=== PATIENT | male | born 1965 | race African-American/Black ===

== ENCOUNTER 2017-06-08 19:13 | Inpatient (IN) | payer MEDICARE, OTHER ==
[~2017-06-08] VITALS: Ht 167.6 cm; Wt 67.6 kg
[~2017-06-08 19:13] MED LIST: AMLO10TA4 PO; AMLO5TAB4 PO; ATOR40TA70 PO; CLOP75TA33 PO; HYDR25TA PO; INSULIN; METO25TA6 PO; SERT50TA PO; TAMS0.4C31 PO
[2017-06-08] MEDS ORDERED: AMLODIPINE 5MG TABLET PO ONE (20:00)
[2017-06-08] MEDS ORDERED: METOPROLOL TARTRATE 25MG TABLET PO ONE (20:00)
[2017-06-08] MEDS ORDERED: HYDROCHLOROTHIAZIDE 25MG TABLET PO ONE (20:00)
[2017-06-08] MEDS ORDERED: ENALAPRIL 2.5MG/2ML VIAL 2ML IV ONE (20:00)
[2017-06-08 20:26] LABS: EOSINOPHILS % 0.4 % (0.0-5.0); HEMATOCRIT. 42.1 % (42.0-52.0); HEMOGLOBIN. 13.5 g/dL (14.0-18.0); LYMPHOCYTES % 30.3 % (20.0-50.0); MEAN CORPUSCULAR HEMOGLOBIN 25.8 pg (28.0-32.0); MEAN CORPUSCULAR VOLUME 80.1 fL (80.0-94.0); MONOCYTES % 7.2 % (2.0-8.0); NEUTROPHILS % 61.1 % (40.0-76.0); PLATELET 218 x1000/uL (130-400); RED BLOOD CELL COUNT 5.25 mill/uL (4.7-6.1)
[2017-06-08 20:32] LABS: CHLORIDE 107 mEq/L (98-107)
[2017-06-08 20:34] LABS: INR 1.2; PARTIAL THROMBOPLASTIN TIME 27.8 sec (23.4-31.0); PROTHROMBIN TIME 12.4 sec (9.4-11.6)
[2017-06-08 20:41] LABS: CREATINE KINASE 71 IU/L (39-308)
[2017-06-08 20:44] LABS: CREATINE KINASE MB FRACTION 4.5 ng/mL (0.5-3.6)
[2017-06-08] MEDS ORDERED: FUROSEMIDE 40MG/4ML VIAL IVP ONE (21:00)
[2017-06-08] MEDS ORDERED: ASPIRIN 81MG TABLET PO ONE (21:15)
[2017-06-08 23:03] LABS: *AMPHETAMINES SCREEN URINE NEGATIVE (NEGATIVE); *BARBITURATES SCREEN URINE NEGATIVE (NEGATIVE); *BENZODIAZEPINES SCREEN URINE NEGATIVE (NEGATIVE); *COCAINE SCREEN URINE NEGATIVE (NEGATIVE); CANNABINOID URINE SCREEN NEGATIVE (NEGATIVE); OPIATES URINE SCREEN NEGATIVE (NEGATIVE); PHENCYCLIDINE URINE SCREEN NEGATIVE (NEGATIVE)
[2017-06-08 23:04] LABS: METHADONE URINE SCREEN NEGATIVE (NEGATIVE)
[2017-06-09] VITALS (11 sets, daily range): BP systolic 105–174; BP diastolic 73–121
[2017-06-09] MEDS ORDERED: HYDRALAZINE 20MG/ML VIAL IV PRN ×2 (02:45→14:30)
[2017-06-09] MEDS ORDERED: CLONIDINE 0.1MG TABLET PO PRN ×2 (02:45→14:30)
[2017-06-09 06:45] LABS: BASOPHILS % 1.4 % (0.0-2.0); EOSINOPHILS % 0.4 % (0.0-5.0); HEMATOCRIT. 43.1 % (42.0-52.0); HEMOGLOBIN. 13.9 g/dL (14.0-18.0); LYMPHOCYTES % 30.1 % (20.0-50.0); MEAN CORPUSCULAR HEMOGLOBIN 25.6 pg (28.0-32.0); MEAN CORPUSCULAR VOLUME 79.4 fL (80.0-94.0); MEAN PLATELET VOLUME 9.5 fl (7.4-10.4); MONOCYTES % 7.5 % (2.0-8.0); NEUTROPHILS % 60.6 % (40.0-76.0); PLATELET 206 x1000/uL (130-400); RED BLOOD CELL COUNT 5.42 mill/uL (4.7-6.1); RED CELL DISTRIBUTION WIDTH 14.7 % (11.6-14.6)
[2017-06-09] MEDS: METOPROLOL TARTRATE 25MG TABLET PO SCH ×2 (08:26→21:12)
[2017-06-09] MEDS: CLOPIDOGREL 75MG TABLET PO SCH (08:26)
[2017-06-09] MEDS: HYDROCHLOROTHIAZIDE 25MG TABLET PO SCH (08:27)
[2017-06-09] MEDS: TAMSULOSIN HCL 0.4MG SR CAPSULE PO SCH (08:27)
[2017-06-09] MEDS ORDERED: METOPROLOL TARTRATE 25MG TABLET PO SCH (09:00)
[2017-06-09] MEDS ORDERED: AMLODIPINE 10MG TABLET PO SCH (09:00)
[2017-06-09] MEDS ORDERED: CLOPIDOGREL 75MG TABLET PO SCH (09:00)
[2017-06-09] MEDS ORDERED: POTASSIUM CHLORIDE 20MEQ/PACKET PO NR (12:45)
[2017-06-09] MEDS ORDERED: REGADENOSON 0.4 MG/5 ML IV ONE (14:30)
[2017-06-09] MEDS ORDERED: AMLODIPINE 2.5MG TABLET PO SCH (14:45)
[2017-06-09] MEDS: ASPIRIN 81MG EC TABLET PO SCH (15:10)
[2017-06-09] MEDS: ENOXAPARIN 40MG/0.4ML SYR SUBCUT SCH (15:11)
[2017-06-09] MEDS: NITROGLYCERIN OINT 1GM/INCH UDPKT TD SCH ×2 (17:27→23:19)
[2017-06-09] MEDS: AMLODIPINE 10MG TABLET PO SCH (21:00)
[2017-06-09] MEDS: ATORVASTATIN CALCIUM 40MG TABLET PO SCH (21:11)
[2017-06-09] MEDS: HYDRALAZINE HCL 100MG TABLET PO SCH (23:18)
[2017-06-10] VITALS (12 sets, daily range): BP systolic 115–155; BP diastolic 72–111
[2017-06-10] MEDS: HYDRALAZINE HCL 100MG TABLET PO SCH ×3 (05:57→21:16)
[2017-06-10] MEDS: NITROGLYCERIN OINT 1GM/INCH UDPKT TD SCH ×4 (05:59→23:35)
[2017-06-10 06:47] LABS: BASOPHILS % 1.2 % (0.0-2.0); EOSINOPHILS % 2.1 % (0.0-5.0); HEMOGLOBIN. 13.8 g/dL (14.0-18.0); LYMPHOCYTES % 23.7 % (20.0-50.0); MEAN CORPUSCULAR HEMOGLOBIN 25.7 pg (28.0-32.0); MEAN PLATELET VOLUME 9.4 fl (7.4-10.4); MONOCYTES % 11.2 % (2.0-8.0); NEUTROPHILS % 61.8 % (40.0-76.0); PLATELET 219 x1000/uL (130-400); RED BLOOD CELL COUNT 5.37 mill/uL (4.7-6.1); RED CELL DISTRIBUTION WIDTH 14.9 % (11.6-14.6)
[2017-06-10 07:30] LABS: CHLORIDE 107 mEq/L (98-107)
[2017-06-10 07:39] LABS: LDL CHOLESTEROL 99 mg/dL (5-100)
[2017-06-10 07:40] LABS: CREATINE KINASE 44 IU/L (39-308); CREATINE KINASE MB FRACTION 2.5 ng/mL (0.5-3.6); HDL CHOLESTEROL 63 mg/dL (40-59)
[2017-06-10] MEDS ORDERED: REGADENOSON 0.4 MG/5 ML IV ONE (08:38)
[2017-06-10] MEDS: ASPIRIN 81MG EC TABLET PO SCH (10:09)
[2017-06-10] MEDS: CLOPIDOGREL 75MG TABLET PO SCH (10:10)
[2017-06-10] MEDS: AMLODIPINE 10MG TABLET PO SCH ×2 (10:10→21:16)
[2017-06-10] MEDS: HYDROCHLOROTHIAZIDE 25MG TABLET PO SCH (10:10)
[2017-06-10] MEDS: TAMSULOSIN HCL 0.4MG SR CAPSULE PO SCH (10:10)
[2017-06-10] MEDS: METOPROLOL TARTRATE 25MG TABLET PO SCH ×2 (10:11→21:16)
[2017-06-10] MEDS: ENOXAPARIN 40MG/0.4ML SYR SUBCUT SCH (14:19)
[2017-06-10] MEDS: ATORVASTATIN CALCIUM 40MG TABLET PO SCH (21:14)
[2017-06-11] VITALS (16 sets, daily range): BP systolic 102–197; BP diastolic 43–115
[2017-06-11] MEDS: HYDRALAZINE HCL 100MG TABLET PO SCH ×3 (05:41→21:53)
[2017-06-11] MEDS: NITROGLYCERIN OINT 1GM/INCH UDPKT TD SCH ×3 (05:41→23:18)
[2017-06-11] MEDS: ASPIRIN 81MG EC TABLET PO SCH (09:29)
[2017-06-11] MEDS: TAMSULOSIN HCL 0.4MG SR CAPSULE PO SCH (09:29)
[2017-06-11] MEDS: HYDROCHLOROTHIAZIDE 25MG TABLET PO SCH (09:30)
[2017-06-11] MEDS: METOPROLOL TARTRATE 25MG TABLET PO SCH (09:30)
[2017-06-11] MEDS: CLOPIDOGREL 75MG TABLET PO SCH (09:31)
[2017-06-11] MEDS: AMLODIPINE 10MG TABLET PO SCH ×2 (09:31→21:00)
[2017-06-11] MEDS: ENOXAPARIN 40MG/0.4ML SYR SUBCUT SCH (15:56)
[2017-06-11] MEDS: LOSARTAN POTASSIUM 25 MG TABLET PO SCH (17:09)
[2017-06-11] MEDS: CARVEDILOL 12.5MG TABLET PO SCH (17:12)
[2017-06-11] MEDS: ATORVASTATIN CALCIUM 40MG TABLET PO SCH ×2 (21:00→21:52)
[2017-06-12] VITALS (12 sets, daily range): BP systolic 101–130; BP diastolic 41–91
[2017-06-12] MEDS: HYDRALAZINE HCL 100MG TABLET PO SCH ×3 (05:18→21:49)
[2017-06-12] MEDS: NITROGLYCERIN OINT 1GM/INCH UDPKT TD SCH ×4 (05:18→23:08)
[2017-06-12] MEDS: ASPIRIN 81MG EC TABLET PO SCH (08:45)
[2017-06-12] MEDS: CLOPIDOGREL 75MG TABLET PO SCH (08:45)
[2017-06-12] MEDS: AMLODIPINE 10MG TABLET PO SCH ×2 (08:46→21:00)
[2017-06-12] MEDS: HYDROCHLOROTHIAZIDE 25MG TABLET PO SCH (08:47)
[2017-06-12] MEDS: CARVEDILOL 12.5MG TABLET PO SCH ×2 (08:47→17:31)
[2017-06-12] MEDS: LOSARTAN POTASSIUM 25 MG TABLET PO SCH (08:47)
[2017-06-12] MEDS: TAMSULOSIN HCL 0.4MG SR CAPSULE PO SCH (08:47)
[2017-06-12] MEDS: ENOXAPARIN 40MG/0.4ML SYR SUBCUT SCH (14:12)
[2017-06-12] MEDS: ATORVASTATIN CALCIUM 40MG TABLET PO SCH (21:57)
[2017-06-13] VITALS (12 sets, daily range): BP systolic 112–142; BP diastolic 69–96
[2017-06-13] MEDS: HYDRALAZINE HCL 100MG TABLET PO SCH (05:19)
[2017-06-13] MEDS: NITROGLYCERIN OINT 1GM/INCH UDPKT TD SCH ×3 (05:21→17:41)
[2017-06-13] MEDS: LOSARTAN POTASSIUM 25 MG TABLET PO SCH (08:07)
[2017-06-13] MEDS: CARVEDILOL 12.5MG TABLET PO SCH ×2 (08:07→17:44)
[2017-06-13] MEDS: ASPIRIN 81MG EC TABLET PO SCH (08:07)
[2017-06-13] MEDS: HYDROCHLOROTHIAZIDE 25MG TABLET PO SCH (08:07)
[2017-06-13] MEDS: AMLODIPINE 10MG TABLET PO SCH (08:08)
[2017-06-13] MEDS: CLOPIDOGREL 75MG TABLET PO SCH (08:08)
[2017-06-13] MEDS: TAMSULOSIN HCL 0.4MG SR CAPSULE PO SCH (08:08)
[2017-06-13] MEDS: ENOXAPARIN 40MG/0.4ML SYR SUBCUT SCH (14:04)
[2017-06-13] MEDS: HYDRALAZINE HCL 25MG TABLET PO SCH ×2 (14:10→21:24)
[2017-06-13 17:11] LABS: HEMATOCRIT. 42.3 % (42.0-52.0); HEMOGLOBIN. 13.7 g/dL (14.0-18.0); MEAN CORPUSCULAR HEMOGLOBIN 25.9 pg (28.0-32.0); MEAN PLATELET VOLUME 9.2 fl (7.4-10.4); PLATELET 214 x1000/uL (130-400); RED BLOOD CELL COUNT 5.28 mill/uL (4.7-6.1); RED CELL DISTRIBUTION WIDTH 15.4 % (11.6-14.6)
[2017-06-13] MEDS: ATORVASTATIN CALCIUM 40MG TABLET PO SCH (21:23)
[2017-06-13] MEDS: AMLODIPINE 5MG TABLET PO SCH (21:24)
[2017-06-13 22:17] LABS: PLATELET ESTIMATE NORMAL
[2017-06-14] VITALS: BP 125/80
[2017-06-14 04:00] VITALS: BP 127/84
[2017-06-14] MEDS: NITROGLYCERIN OINT 1GM/INCH UDPKT TD SCH ×4 (06:21→21:23)
[2017-06-14] MEDS: HYDRALAZINE HCL 25MG TABLET PO SCH ×3 (06:21→21:23)
[2017-06-14 07:07] LABS: HEMATOCRIT. 39.3 % (42.0-52.0); HEMOGLOBIN. 13.1 g/dL (14.0-18.0); MEAN CORPUSCULAR HEMOGLOBIN 26.5 pg (28.0-32.0); MEAN CORPUSCULAR VOLUME 79.7 fL (80.0-94.0); MEAN PLATELET VOLUME 9.2 fl (7.4-10.4); PLATELET 199 x1000/uL (130-400); RED BLOOD CELL COUNT 4.93 mill/uL (4.7-6.1); RED CELL DISTRIBUTION WIDTH 15.1 % (11.6-14.6)
[2017-06-14 08:00] VITALS: BP 122/80
[2017-06-14] MEDS ORDERED: CARVEDILOL 3.125 MG TABLET PO SCH (09:07)
[2017-06-14] MEDS: AMLODIPINE 5MG TABLET PO SCH (09:20)
[2017-06-14] MEDS: TAMSULOSIN HCL 0.4MG SR CAPSULE PO SCH (09:21)
[2017-06-14] MEDS: ASPIRIN 81MG EC TABLET PO SCH (09:21)
[2017-06-14] MEDS: HYDROCHLOROTHIAZIDE 25MG TABLET PO SCH (09:21)
[2017-06-14] MEDS: CLOPIDOGREL 75MG TABLET PO SCH (09:21)
[2017-06-14] MEDS: LOSARTAN POTASSIUM 25 MG TABLET PO SCH (09:21)
[2017-06-14 12:00] VITALS: BP 131/84
[2017-06-14] MEDS: ENOXAPARIN 40MG/0.4ML SYR SUBCUT SCH (14:45)
[2017-06-14 16:00] VITALS: BP 144/95
[2017-06-14 18:01] LABS: PLATELET ESTIMATE NORMAL
[2017-06-14 20:00] VITALS: BP 136/77
[2017-06-14] MEDS: ATORVASTATIN CALCIUM 40MG TABLET PO SCH (21:22)
[2017-06-14] MEDS: CARVEDILOL 6.25 MG TABLET PO SCH (21:23)
[2017-06-14] MEDS ORDERED: METF500T4 PO (23:43)
[2017-06-14] MEDS ORDERED: ASPI-1159 PO (23:49)
[2017-06-15] VITALS: BP 117/76
[2017-06-15] MEDS: HYDRALAZINE HCL 25MG TABLET PO SCH ×3 (06:31→21:37)
[2017-06-15] MEDS: NITROGLYCERIN OINT 1GM/INCH UDPKT TD SCH ×3 (06:32→21:36)
[2017-06-15 07:21] VITALS: BP 139/93
[2017-06-15] MEDS: ASPIRIN 81MG EC TABLET PO SCH (09:56)
[2017-06-15] MEDS: LOSARTAN POTASSIUM 25 MG TABLET PO SCH (09:56)
[2017-06-15] MEDS: FOLIC ACID 1MG TABLET PO SCH (09:56)
[2017-06-15] MEDS: TAMSULOSIN HCL 0.4MG SR CAPSULE PO SCH (09:56)
[2017-06-15] MEDS: HYDROCHLOROTHIAZIDE 25MG TABLET PO SCH (09:57)
[2017-06-15] MEDS: CARVEDILOL 6.25 MG TABLET PO SCH ×2 (09:57→20:53)
[2017-06-15] MEDS: AMLODIPINE 5MG TABLET PO SCH (09:58)
[2017-06-15] MEDS: CLOPIDOGREL 75MG TABLET PO SCH (09:58)
[2017-06-15 12:00] VITALS: BP 140/97
[2017-06-15] MEDS: ENOXAPARIN 40MG/0.4ML SYR SUBCUT SCH (14:20)
[2017-06-15 15:51] LABS: BASOPHILS % 0.7 % (0.0-2.0); EOSINOPHILS % 0.6 % (0.0-5.0); HEMATOCRIT. 42.8 % (42.0-52.0); HEMOGLOBIN. 13.6 g/dL (14.0-18.0); LYMPHOCYTES % 24.9 % (20.0-50.0); MEAN CORPUSCULAR HEMOGLOBIN 25.7 pg (28.0-32.0); MEAN CORPUSCULAR VOLUME 80.9 fL (80.0-94.0); MEAN PLATELET VOLUME 9.4 fl (7.4-10.4); NEUTROPHILS % 62.8 % (40.0-76.0); PLATELET 202 x1000/uL (130-400); RED BLOOD CELL COUNT 5.29 mill/uL (4.7-6.1); RED CELL DISTRIBUTION WIDTH 15.5 % (11.6-14.6)
[2017-06-15 16:00] VITALS: BP 145/98
[2017-06-15 20:36] VITALS: BP 132/91
[2017-06-15] MEDS: ATORVASTATIN CALCIUM 40MG TABLET PO SCH (20:53)
[2017-06-16 00:16] VITALS: BP 131/84
[2017-06-16 04:00] VITALS: BP 119/86
[2017-06-16] MEDS: HYDRALAZINE HCL 25MG TABLET PO SCH (05:35)
[2017-06-16] MEDS: NITROGLYCERIN OINT 1GM/INCH UDPKT TD SCH (05:35)
[2017-06-16 08:00] VITALS: BP 126/80
[2017-06-16] MEDS: CLOPIDOGREL 75MG TABLET PO SCH (08:25)
[2017-06-16] MEDS: AMLODIPINE 5MG TABLET PO SCH (08:25)
[2017-06-16] MEDS: FOLIC ACID 1MG TABLET PO SCH (08:25)
[2017-06-16] MEDS: TAMSULOSIN HCL 0.4MG SR CAPSULE PO SCH (08:25)
[2017-06-16] MEDS: ASPIRIN 81MG EC TABLET PO SCH (08:25)
[2017-06-16] MEDS: CARVEDILOL 6.25 MG TABLET PO SCH (08:26)
[2017-06-16] MEDS: LOSARTAN POTASSIUM 25 MG TABLET PO SCH (08:29)
[2017-06-16] MEDS: HYDROCHLOROTHIAZIDE 25MG TABLET PO SCH (08:33)
[2017-06-16 09:30] VITALS: BP 126/80
== END 2017-06-16 11:06 | DRG 64 ==
LOC: ER 19:47 → 5EST 20:56 → EDBEDREQTM 21:00 → EDBEDREQ 21:00 → EDBEDREQSVC 21:00 → ENRESERV 21:59 → 7WST 06-13 18:20
PROVIDERS: ADMIT Internal Medicine; ATTEND Internal Medicine
DX: I63.9 Cerebral infarction, unspecified (principal); I50.43 Acute on chronic combined systolic (congestive) and diastolic (congestive) heart failure; I95.9 Hypotension, unspecified; E11.22 Type 2 diabetes mellitus with diabetic chronic kidney disease; I42.9 Cardiomyopathy, unspecified; N17.9 Acute kidney failure, unspecified; E11.65 Type 2 diabetes mellitus with hyperglycemia; I13.0 Hypertensive heart and chronic kidney disease with heart failure and stage 1 through stage 4 chronic kidney disease, or unspecified chronic kidney disease; N18.4 Chronic kidney disease, stage 4 (severe); I69.359 Hemiplegia and hemiparesis following cerebral infarction affecting unspecified side; N18.9 Chronic kidney disease, unspecified; E87.6 Hypokalemia; E78.00 Pure hypercholesterolemia, unspecified; D72.819 Decreased white blood cell count, unspecified; R26.9 Unspecified abnormalities of gait and mobility; R47.1 Dysarthria and anarthria; E05.90 Thyrotoxicosis, unspecified without thyrotoxic crisis or storm; E78.5 Hyperlipidemia, unspecified; F32.9 Major depressive disorder, single episode, unspecified; F41.9 Anxiety disorder, unspecified; I16.0 Hypertensive urgency; N40.0 Benign prostatic hyperplasia without lower urinary tract symptoms; Z79.02 Long term (current) use of antithrombotics/antiplatelets; Z79.82 Long term (current) use of aspirin; Z79.84 Long term (current) use of oral hypoglycemic drugs; Z79.899 Other long term (current) drug therapy; Z91.14 Patient's other noncompliance with medication regimen
CPT/HCPCS: 36415; 70551; 71045; 78452; 78582; 80048; 80053; 80061; 80305; 82550; 82553; 83036; 83690; 83735; 83880; 84443; 84484; 85025; 85379; 85610; 85730; 92523; 92610; 93005; 93017; 93306; 93880; 96374; 96375; 97112; 97163; 97167; 97530; 99291; A9500; A9558; J0360; J1650; J1940; J2785; J3490; A4315

== ENCOUNTER 2017-11-11 11:13 | Inpatient (IN) | payer MEDICARE, OTHER ==
[~2017-11-11] VITALS: Ht 188 cm; Wt 67.2 kg
[~2017-11-11 11:13] MED LIST changes: -AMLO5TAB4 PO; +ASPI-1159 PO; -HYDR25TA PO; -INSULIN
[2017-11-11] MEDS ORDERED: SODIUM CHLORIDE 0.9% 1,000 ML IV ONE ×2 (11:54→13:30)
[2017-11-11] MEDS ORDERED: AMMONIA INHALATION 1EA INH ONE (13:30)
[2017-11-11 13:53] LABS: BG BASE EXCESS 0.9 mmol/L (-2.0-2.0); BG CARBOXYHEMOGLOBIN 0.4 % (0.5-1.5); BG DEOXYHEMOGLOBIN 3.9 % (0.0-5.0); BG HCO3 ACT 25.8 mmol/L (22.0-26.0); BG METHEMOGLOBIN 0.3 % (0.0-1.5); BG OXYGEN SATURATION 96.1 % (92.0-98.5); BG OXYHEMOGLOBIN 95.4 % (94.0-97.0); BG PCO2 42.6 mmHg (35.0-45.0); BG PO2 86.8 mmHg (75.0-100.0); BG SAMPLE SITE RIGHT RADIAL; BG TOTAL HEMOGLOBIN 9.5 g/dL (12.0-18.0); BG VENT MODE ROOM AIR
[2017-11-11 14:03] LABS: HEMATOCRIT. 27.9 % (42.0-52.0); HEMOGLOBIN. 9.1 g/dL (14.0-18.0); LYMPHOCYTES % 26.8 % (20.0-50.0); MEAN CORPUSCULAR HEMOGLOBIN 27.4 pg (28.0-32.0); MEAN CORPUSCULAR VOLUME 83.9 fL (80.0-94.0); MEAN PLATELET VOLUME 9.3 fl (7.4-10.4); MONOCYTES % 12.3 % (2.0-8.0); NEUTROPHILS % 58.9 % (40.0-76.0); PLATELET 177 x1000/uL (130-400); RED BLOOD CELL COUNT 3.33 mill/uL (4.7-6.1); RED CELL DISTRIBUTION WIDTH 14.5 % (11.6-14.6)
[2017-11-11 14:07] LABS: CHLORIDE 106 mEq/L (98-107)
[2017-11-11 14:09] LABS: PARTIAL THROMBOPLASTIN TIME 26.8 sec (23.4-31.0); PROTHROMBIN TIME 10.1 sec (9.1-11.1)
[2017-11-11 14:15] LABS: AMMONIA 41 uMol/L (<32)
[2017-11-11 14:16] LABS: CREATINE KINASE 80 IU/L (39-308)
[2017-11-11] MEDS ORDERED: LIDOCAINE HCL/PF 1% 2ML VIAL ONE (15:42)
[2017-11-11] MEDS ORDERED: LACTULOSE 20G/30ML UDC PO NR (17:00)
[2017-11-11] MEDS ORDERED: POTASSIUM CHLORIDE 20MEQ TABLET SR PO NR (17:00)
[2017-11-11 19:20] LABS: CLARITY URINE CLEAR (CLEAR); COLOR URINE YELLOW (YELLOW); KETONES URINE NEGATIVE (NEGATIVE); LEUKOCYTE ESTERASE URINE NEGATIVE (NEGATIVE); NITRITE URINE NEGATIVE (NEGATIVE); OCCULT BLOOD URINE NEGATIVE (NEGATIVE); PH URINE 7.5 (4.5-8.0); PROTEIN URINE TRACE (NEGATIVE); SPECIFIC GRAVITY URINE 1.008 (1.005-1.030)
[2017-11-11 19:49] LABS: *AMPHETAMINES SCREEN URINE NEGATIVE (NEGATIVE); *BARBITURATES SCREEN URINE NEGATIVE (NEGATIVE); *BENZODIAZEPINES SCREEN URINE NEGATIVE (NEGATIVE); *COCAINE SCREEN URINE NEGATIVE (NEGATIVE); CANNABINOID URINE SCREEN NEGATIVE (NEGATIVE); METHADONE URINE SCREEN NEGATIVE (NEGATIVE); OPIATES URINE SCREEN NEGATIVE (NEGATIVE); PHENCYCLIDINE URINE SCREEN NEGATIVE (NEGATIVE)
[2017-11-11] MEDS ORDERED: LABETALOL 5MG/ML SYR 20 MG/4 ML SYRINGE IV NR (20:56)
[2017-11-11] MEDS ORDERED: LORAZEPAM 2MG/ML CPJ IV NR (20:57)
[2017-11-11 22:08] VITALS: BP 205/101
[2017-11-11] MEDS ORDERED: DEXT 5%/0.9% NACL 1,000 ML IV SCH (23:00)
[2017-11-12] VITALS (8 sets, daily range): BP systolic 144–205; BP diastolic 88–118
[2017-11-12] MEDS: LABETALOL 5MG/ML SYR 20 MG/4 ML SYRINGE IV PRN (01:13)
[2017-11-12] MEDS: FAMOTIDINE 20MG/2ML VIAL IV SCH (09:37)
[2017-11-12] MEDS: ASPIRIN 81MG TABLET PO SCH (09:37)
[2017-11-12] MEDS ORDERED: MEDICATION NOT ON FORMULARY EA (Aspirin (Aspirin Low Dose) 1 TAB) PO SCH (11:15)
[2017-11-12] MEDS ORDERED: MEDICATION NOT ON FORMULARY EA (Clopidogrel Bisulfate (Clopidogrel) 1 TAB) PO SCH (11:15)
[2017-11-12] MEDS: CLOPIDOGREL 75MG TABLET PO SCH (12:11)
[2017-11-12] MEDS: AMLODIPINE 10MG TABLET PO SCH (12:11)
[2017-11-12] MEDS: TAMSULOSIN HCL 0.4MG SR CAPSULE PO SCH (12:12)
[2017-11-12] MEDS: METOPROLOL TARTRATE 25MG TABLET PO SCH ×2 (12:13→21:03)
[2017-11-12] MEDS: SERTRALINE HCL 50MG TABLET PO SCH (12:13)
[2017-11-12] MEDS: LORAZEPAM 2MG/ML CPJ IV PRN ×2 (12:26→21:58)
[2017-11-12 13:26] LABS: HEMATOCRIT 28.9 % (42.0-52.0); HEMOGLOBIN 9.3 g/dL (14.0-18.0); MEAN CORPUSCULAR HEMOGLOBIN 27.4 pg (28.0-32.0); MEAN CORPUSCULAR VOLUME 84.7 fL (80.0-94.0); PLATELET 184 x1000/uL (130-400); RED BLOOD CELL COUNT 3.41 mill/uL (4.7-6.1); RED CELL DISTRIBUTION WIDTH 14.6 % (11.6-14.6)
[2017-11-12] MEDS ORDERED: NITROGLYCERIN OINT 1GM/INCH UDPKT TD NR (15:48)
[2017-11-12] MEDS ORDERED: MEDICATION NOT ON FORMULARY EA (Metoprolol Tartrate 25 MG) PO SCH (17:00)
[2017-11-12] MEDS: ATORVASTATIN CALCIUM 40MG TABLET PO SCH (21:03)
[2017-11-13] VITALS (7 sets, daily range): BP systolic 123–176; BP diastolic 80–121
[2017-11-13 07:46] LABS: HEMATOCRIT 31.2 % (42.0-52.0); HEMOGLOBIN 10.1 g/dL (14.0-18.0); MEAN CORPUSCULAR HEMOGLOBIN 27.3 pg (28.0-32.0); MEAN CORPUSCULAR VOLUME 84.3 fL (80.0-94.0); PLATELET 206 x1000/uL (130-400); RED CELL DISTRIBUTION WIDTH 14.1 % (11.6-14.6)
[2017-11-13] MEDS: ASPIRIN 81MG TABLET PO SCH ×2 (09:00→18:01)
[2017-11-13] MEDS: CLOPIDOGREL 75MG TABLET PO SCH ×2 (09:00→18:01)
[2017-11-13] MEDS: METOPROLOL TARTRATE 25MG TABLET PO SCH (09:00)
[2017-11-13] MEDS: TAMSULOSIN HCL 0.4MG SR CAPSULE PO SCH ×2 (09:00→18:01)
[2017-11-13] MEDS: AMLODIPINE 10MG TABLET PO SCH ×2 (09:00→18:02)
[2017-11-13] MEDS: SERTRALINE HCL 50MG TABLET PO SCH ×2 (09:00→18:02)
[2017-11-13] MEDS: FAMOTIDINE 20MG/2ML VIAL IV SCH (09:20)
[2017-11-13] MEDS: LABETALOL 5MG/ML SYR 20 MG/4 ML SYRINGE IV PRN (10:35)
[2017-11-13] MEDS ORDERED: METOPROLOL TARTRATE 25MG TABLET PO NR (11:30)
[2017-11-13] MEDS ORDERED: HYDRALAZINE HCL 50MG TABLET PO SCH (14:00)
[2017-11-13] MEDS: ATORVASTATIN CALCIUM 40MG TABLET PO SCH (20:32)
[2017-11-13] MEDS: METOPROLOL TARTRATE 50MG TABLET PO SCH (20:32)
[2017-11-13] MEDS: HYDRALAZINE HCL 50MG TABLET PO SCH (22:05)
[2017-11-14] VITALS: BP 157/89
[2017-11-14 04:00] VITALS: BP 169/101
[2017-11-14] MEDS: HYDRALAZINE HCL 50MG TABLET PO SCH ×3 (06:02→23:35)
[2017-11-14 07:13] LABS: HEMATOCRIT 32.5 % (42.0-52.0); HEMOGLOBIN 10.6 g/dL (14.0-18.0); MEAN CORPUSCULAR HEMOGLOBIN 27.5 pg (28.0-32.0); MEAN CORPUSCULAR VOLUME 84.4 fL (80.0-94.0); PLATELET 218 x1000/uL (130-400); RED BLOOD CELL COUNT 3.85 mill/uL (4.7-6.1); RED CELL DISTRIBUTION WIDTH 14.1 % (11.6-14.6)
[2017-11-14 07:44] LABS: AMMONIA 28 uMol/L (<32)
[2017-11-14 08:00] VITALS: BP 165/101
[2017-11-14] MEDS: METOPROLOL TARTRATE 50MG TABLET PO SCH ×2 (08:20→21:41)
[2017-11-14] MEDS: CLOPIDOGREL 75MG TABLET PO SCH (08:20)
[2017-11-14] MEDS: FAMOTIDINE 20MG/2ML VIAL IV SCH (08:21)
[2017-11-14] MEDS: SERTRALINE HCL 50MG TABLET PO SCH (08:21)
[2017-11-14] MEDS: ASPIRIN 81MG TABLET PO SCH (08:21)
[2017-11-14] MEDS: AMLODIPINE 10MG TABLET PO SCH (08:21)
[2017-11-14] MEDS: TAMSULOSIN HCL 0.4MG SR CAPSULE PO SCH (08:21)
[2017-11-14 12:00] VITALS: BP 144/97
[2017-11-14 16:00] VITALS: BP 142/87
[2017-11-14 20:00] VITALS: BP 174/105
[2017-11-14] MEDS: ATORVASTATIN CALCIUM 40MG TABLET PO SCH (21:41)
[2017-11-15] VITALS: BP 169/103
[2017-11-15 04:00] VITALS: BP 172/98
[2017-11-15] MEDS: HYDRALAZINE HCL 50MG TABLET PO SCH ×3 (05:43→21:40)
[2017-11-15] MEDS: LORAZEPAM 2MG/ML CPJ IV PRN ×2 (05:43→13:32)
[2017-11-15] MEDS: FAMOTIDINE 20MG/2ML VIAL IV SCH (08:08)
[2017-11-15] MEDS: LABETALOL 5MG/ML SYR 20 MG/4 ML SYRINGE IV PRN (08:09)
[2017-11-15] MEDS: ASPIRIN 81MG TABLET PO SCH (08:39)
[2017-11-15] MEDS: CLOPIDOGREL 75MG TABLET PO SCH (08:39)
[2017-11-15] MEDS: METOPROLOL TARTRATE 50MG TABLET PO SCH ×2 (08:39→21:00)
[2017-11-15] MEDS: AMLODIPINE 10MG TABLET PO SCH (08:39)
[2017-11-15] MEDS: TAMSULOSIN HCL 0.4MG SR CAPSULE PO SCH (08:39)
[2017-11-15] MEDS: SERTRALINE HCL 50MG TABLET PO SCH (08:40)
[2017-11-15 08:46] VITALS: BP 189/105
[2017-11-15 12:46] VITALS: BP 153/109
[2017-11-15] MEDS: CLONIDINE 0.1MG TABLET PO SCH ×2 (14:00→21:41)
[2017-11-15 16:53] VITALS: BP 158/92
[2017-11-15 20:00] VITALS: BP 159/97
[2017-11-15] MEDS: ATORVASTATIN CALCIUM 40MG TABLET PO SCH (21:40)
[2017-11-16] VITALS: BP 174/97
[2017-11-16] MEDS: LORAZEPAM 2MG/ML CPJ IV PRN (00:08)
[2017-11-16 04:00] VITALS: BP 136/90
[2017-11-16] MEDS: HYDRALAZINE HCL 50MG TABLET PO SCH ×2 (05:58→14:45)
[2017-11-16] MEDS: CLONIDINE 0.1MG TABLET PO SCH ×2 (05:59→14:45)
[2017-11-16 08:00] VITALS: BP 141/86
[2017-11-16] MEDS: CLOPIDOGREL 75MG TABLET PO SCH (09:20)
[2017-11-16] MEDS: TAMSULOSIN HCL 0.4MG SR CAPSULE PO SCH (09:21)
[2017-11-16] MEDS: FAMOTIDINE 20MG/2ML VIAL IV SCH (09:22)
[2017-11-16] MEDS: ASPIRIN 81MG TABLET PO SCH (09:22)
[2017-11-16] MEDS: AMLODIPINE 10MG TABLET PO SCH (09:22)
[2017-11-16] MEDS: METOPROLOL TARTRATE 50MG TABLET PO SCH (09:22)
[2017-11-16] MEDS: SERTRALINE HCL 50MG TABLET PO SCH (09:22)
[2017-11-16 12:00] VITALS: BP 142/81
[2017-11-16 16:00] VITALS: BP 140/91
[2017-11-16 16:20] VITALS: BP 140/91
== END 2017-11-16 19:24 | DRG 291 ==
LOC: ER 11:35 → 6WST 13:34 → ENRESERV 19:54 → 6WST 11-13 03:45
PROVIDERS: ADMIT Internal Medicine; ATTEND Internal Medicine
DX: I13.0 Hypertensive heart and chronic kidney disease with heart failure and stage 1 through stage 4 chronic kidney disease, or unspecified chronic kidney disease (principal); G92 Toxic encephalopathy; I50.23 Acute on chronic systolic (congestive) heart failure; N17.9 Acute kidney failure, unspecified; E72.20 Disorder of urea cycle metabolism, unspecified; G40.909 Epilepsy, unspecified, not intractable, without status epilepticus; D64.9 Anemia, unspecified; N18.9 Chronic kidney disease, unspecified; E11.22 Type 2 diabetes mellitus with diabetic chronic kidney disease; E87.6 Hypokalemia; E78.00 Pure hypercholesterolemia, unspecified; N40.0 Benign prostatic hyperplasia without lower urinary tract symptoms; D72.819 Decreased white blood cell count, unspecified; W18.39XA Other fall on same level, initial encounter; Z86.73 Personal history of transient ischemic attack (TIA), and cerebral infarction without residual deficits; Z79.899 Other long term (current) drug therapy; Z79.82 Long term (current) use of aspirin; Z79.4 Long term (current) use of insulin; Y93.89 Activity, other specified; Y92.89 Other specified places as the place of occurrence of the external cause; Y99.8 Other external cause status
CPT/HCPCS: 36415; 36600; 70450; 71045; 80048; 80053; 80305; 80307; 80329; 81003; 82140; 82375; 82550; 82805; 83690; 83880; 84443; 84484; 85025; 85027; 85610; 85730; 93005; 96361; 96374; 96375; 97162; 99285; G0482; J2060; J3490; J7030; J7042

== ENCOUNTER 2018-02-02 12:37 | Emergency (ER) | payer MEDICARE, OTHER ==
[~2018-02-02] VITALS: Ht 177.8 cm; Wt 85.0 kg
[2018-02-02] MEDS ORDERED: SODIUM CHLORIDE 0.9% 1,000 ML IV ONE (13:23)
[2018-02-02 14:30] LABS: BASOPHILS % 0.9 % (0.0-2.0); EOSINOPHILS % 0.5 % (0.0-5.0); HEMATOCRIT. 35.8 % (42.0-52.0); HEMOGLOBIN. 11.6 g/dL (14.0-18.0); LYMPHOCYTES % 17.9 % (20.0-50.0); MEAN CORPUSCULAR HEMOGLOBIN 26.7 pg (28.0-32.0); MEAN CORPUSCULAR VOLUME 82.4 fL (80.0-94.0); MEAN PLATELET VOLUME 8.7 fl (7.4-10.4); MONOCYTES % 6.3 % (2.0-8.0); NEUTROPHILS % 74.4 % (40.0-76.0); PLATELET 183 x1000/uL (130-400); RED BLOOD CELL COUNT 4.34 mill/uL (4.7-6.1); RED CELL DISTRIBUTION WIDTH 14.4 % (11.6-14.6)
[2018-02-02 14:34] LABS: CHLORIDE 106 mEq/L (98-107); PROTHROMBIN TIME 10.3 sec (9.1-11.1)
[2018-02-02 14:39] LABS: ETHANOL BLOOD < 10 mg/dL
[2018-02-02] MEDS ORDERED: CLONIDINE 0.1MG TABLET PO ONE (16:15)
[2018-02-02 17:02] VITALS: BP 184/114
== END 2018-02-02 17:03 | disposition home or self-care (01) ==
LOC: ER 12:37
DX: R53.1 Weakness (principal); Z91.14 Patient's other noncompliance with medication regimen; I10 Essential (primary) hypertension; D64.9 Anemia, unspecified; N28.9 Disorder of kidney and ureter, unspecified; F10.10 Alcohol abuse, uncomplicated; Y90.0 Blood alcohol level of less than 20 mg/100 ml
CPT/HCPCS: 36415; 70450; 80053; 84484; 85025; 85610; 93005; 99284; G0482; J7030

== ENCOUNTER 2018-05-01 13:37 | Emergency (ER) | payer MEDICARE, OTHER ==
[~2018-05-01] VITALS: Ht 167.6 cm; Wt 66.0 kg
[2018-05-01 14:40] VITALS: BP 167/105
== END 2018-05-01 19:24 | disposition left against medical advice (07) ==
LOC: ER 17:05
DX: R10.9 Unspecified abdominal pain (principal); Z53.21 Procedure and treatment not carried out due to patient leaving prior to being seen by health care provider

== ENCOUNTER 2018-05-02 12:00 | Inpatient (IN) | payer MEDICARE, OTHER ==
[~2018-05-02] VITALS: Ht 167.6 cm; Wt 67.6 kg
[2018-05-02] MEDS ORDERED: SODIUM CHLORIDE 0.9% 1,000 ML IV ONE (15:49)
[2018-05-02] MEDS ORDERED: LORAZEPAM 2MG/ML CPJ IV ONE (16:00)
[2018-05-02 16:21] LABS: BASOPHILS % 0.7 % (0.0-2.0); EOSINOPHILS % 0.1 % (0.0-5.0); HEMATOCRIT. 42.2 % (42.0-52.0); HEMOGLOBIN. 12.3 g/dL (14.0-18.0); LYMPHOCYTES % 17.2 % (20.0-50.0); MEAN CORPUSCULAR HEMOGLOBIN 25.5 pg (28.0-32.0); MEAN CORPUSCULAR VOLUME 87.7 fL (80.0-94.0); MEAN PLATELET VOLUME 10.6 fl (7.4-10.4); MONOCYTES % 4.2 % (2.0-8.0); NEUTROPHILS % 77.8 % (40.0-76.0); PLATELET 209 x1000/uL (130-400); RED BLOOD CELL COUNT 4.81 mill/uL (4.7-6.1); RED CELL DISTRIBUTION WIDTH 14.3 % (11.6-14.6)
[2018-05-02 16:24] LABS: CHLORIDE 87 mEq/L (98-107)
[2018-05-02 16:30] LABS: ETHANOL BLOOD < 10 mg/dL
[2018-05-02] MEDS ORDERED: INSULIN REGULAR (DRIP) 100 UNITS in SODIUM CHLORIDE 0.9% 100 ML IV ONE (16:38)
[2018-05-02] MEDS ORDERED: SODIUM CHLORIDE 0.9% 1,000 ML IV NR (16:45)
[2018-05-02 17:07] LABS: BETA HYDROXYBUTYRATE 0.1 mMol/L (0.0-0.3); PHOSPHORUS 3.2 mg/dL (2.5-4.9)
[2018-05-02] MEDS ORDERED: LEVETIRACETAM 500MG PREMIX 100 ML IV ONE (17:15)
[2018-05-02 17:43] LABS: BG BASE EXCESS -1.2 mmol/L (-2.0-2.0); BG CARBOXYHEMOGLOBIN 0.1 % (0.5-1.5); BG DEOXYHEMOGLOBIN 2.6 % (0.0-5.0); BG FRACTION INSPIRED OXYGEN 21; BG HCO3 ACT 23.5 mmol/L (22.0-26.0); BG METHEMOGLOBIN 0.3 % (0.0-1.5); BG OXYGEN SATURATION 97.4 % (92.0-98.5); BG PCO2 39.2 mmHg (35.0-45.0); BG PH 7.395 (7.350-7.450); BG PO2 92.5 mmHg (75.0-100.0); BG SAMPLE SITE RIGHT BRACHIAL; BG TOTAL HEMOGLOBIN 13.1 g/dL (12.0-18.0); BG VENT MODE ROOM AIR
[2018-05-02] MEDS ORDERED: DEXTROSE 50% WATER 50ML SYRINGE IV PRN (21:45)
[2018-05-02] MEDS: BLOOD SUGAR DIAGNOSTIC STRIP TEST SCH (23:40)
[2018-05-02] MEDS: INSULIN LISPRO (MEDIUM DOSE) 100 UNITS/ML SUBCUT SCH (23:40)
[2018-05-03] VITALS (16 sets, daily range): BP systolic 113–186; BP diastolic 57–107
[2018-05-03] MEDS: CLONIDINE 0.1MG TABLET PO PRN (01:56)
[2018-05-03] MEDS: BLOOD SUGAR DIAGNOSTIC STRIP TEST SCH ×6 (02:20→22:14)
[2018-05-03] MEDS: INSULIN LISPRO (MEDIUM DOSE) 100 UNITS/ML SUBCUT SCH ×6 (02:32→22:22)
[2018-05-03] MEDS ORDERED: POTASSIUM CHLORIDE 20MEQ TABLET SR PO NR (20:00)
[2018-05-03] MEDS ORDERED: LEVETIRACETAM 500 MG in SODIUM CHLORIDE 0.9% 100 ML IV SCH (21:30)
[2018-05-04] VITALS (13 sets, daily range): BP systolic 131–184; BP diastolic 57–117
[2018-05-04] MEDS: ENOXAPARIN 40MG/0.4ML SYR SUBCUT SCH ×2 (00:12→21:27)
[2018-05-04] MEDS: CLONIDINE 0.1MG TABLET PO PRN (00:13)
[2018-05-04 01:04] LABS: BASOPHILS % 0.6 % (0.0-2.0); EOSINOPHILS % 0.8 % (0.0-5.0); HEMATOCRIT. 40.2 % (42.0-52.0); HEMOGLOBIN. 12.7 g/dL (14.0-18.0); LYMPHOCYTES % 20.6 % (20.0-50.0); MEAN CORPUSCULAR HEMOGLOBIN 25.5 pg (28.0-32.0); MEAN CORPUSCULAR VOLUME 80.5 fL (80.0-94.0); MEAN PLATELET VOLUME 10.2 fl (7.4-10.4); MONOCYTES % 6.5 % (2.0-8.0); NEUTROPHILS % 71.5 % (40.0-76.0); PLATELET 204 x1000/uL (130-400); RED CELL DISTRIBUTION WIDTH 13.9 % (11.6-14.6)
[2018-05-04 01:18] LABS: CHLORIDE 101 mEq/L (98-107)
[2018-05-04] MEDS: BLOOD SUGAR DIAGNOSTIC STRIP TEST SCH ×5 (02:30→21:00)
[2018-05-04] MEDS: INSULIN LISPRO (MEDIUM DOSE) 100 UNITS/ML SUBCUT SCH ×2 (02:31→06:27)
[2018-05-04 06:54] LABS: HEMATOCRIT. 37.3 % (42.0-52.0); HEMOGLOBIN. 11.8 g/dL (14.0-18.0); MEAN CORPUSCULAR HEMOGLOBIN 25.4 pg (28.0-32.0); MEAN CORPUSCULAR VOLUME 80.1 fL (80.0-94.0); MEAN PLATELET VOLUME 9.9 fl (7.4-10.4); PLATELET 206 x1000/uL (130-400); RED BLOOD CELL COUNT 4.66 mill/uL (4.7-6.1); RED CELL DISTRIBUTION WIDTH 13.9 % (11.6-14.6)
[2018-05-04] MEDS ORDERED: DEXTROSE 50% WATER 50ML SYRINGE IV PRN (08:15)
[2018-05-04] MEDS: LEVETIRACETAM 500 MG in SODIUM CHLORIDE 0.9% 100 ML IV SCH ×2 (09:14→21:28)
[2018-05-04] MEDS: INSULIN LISPRO 100 UNITS/ML SUBCUT SCH ×3 (13:01→21:29)
[2018-05-04 13:13] LABS: PLATELET ESTIMATE NORMAL
[2018-05-04] MEDS: ASPIRIN 81MG TABLET PO SCH (17:42)
[2018-05-04] MEDS: CLOPIDOGREL 75MG TABLET PO SCH (17:42)
[2018-05-04] MEDS ORDERED: INSULIN GLARGINE UD 100 UNITS/ML SYR SUBCUT NR (18:00)
[2018-05-04] MEDS: METOPROLOL TARTRATE 25MG TABLET PO SCH (21:27)
[2018-05-05] VITALS: BP 155/82
[2018-05-05 01:33] VITALS: BP 168/73
[2018-05-05 02:00] VITALS: BP 175/89
[2018-05-05 04:00] VITALS: BP 196/115
[2018-05-05] MEDS: CLONIDINE 0.1MG TABLET PO PRN ×2 (04:15→10:09)
[2018-05-05 06:00] VITALS: BP 172/92
[2018-05-05] MEDS: BLOOD SUGAR DIAGNOSTIC STRIP TEST SCH ×3 (07:02→17:21)
[2018-05-05 07:36] LABS: HEMATOCRIT 35.6 % (42.0-52.0); HEMOGLOBIN 11.3 g/dL (14.0-18.0); MEAN CORPUSCULAR HEMOGLOBIN 25.4 pg (28.0-32.0); MEAN CORPUSCULAR VOLUME 79.8 fL (80.0-94.0); PLATELET 183 x1000/uL (130-400); RED BLOOD CELL COUNT 4.47 mill/uL (4.7-6.1); RED CELL DISTRIBUTION WIDTH 13.6 % (11.6-14.6)
[2018-05-05] MEDS: INSULIN LISPRO 100 UNITS/ML SUBCUT SCH ×3 (08:15→17:42)
[2018-05-05] MEDS ORDERED: ATORVASTATIN CALCIUM 40MG TABLET PO SCH (09:00)
[2018-05-05] MEDS ORDERED: AMLODIPINE 10MG TABLET PO SCH (09:00)
[2018-05-05] MEDS ORDERED: TAMSULOSIN HCL 0.4MG SR CAPSULE PO SCH (09:00)
[2018-05-05] MEDS ORDERED: SERTRALINE HCL 50MG TABLET PO SCH (09:00)
[2018-05-05] MEDS ORDERED: INSULIN GLARGINE UD 100 UNITS/ML SYR SUBCUT SCH ×2 (10:00→22:00)
[2018-05-05] MEDS: CLOPIDOGREL 75MG TABLET PO SCH (10:08)
[2018-05-05] MEDS: METOPROLOL TARTRATE 25MG TABLET PO SCH (10:08)
[2018-05-05] MEDS: ASPIRIN 81MG TABLET PO SCH (10:09)
[2018-05-05] MEDS: LEVETIRACETAM 500 MG in SODIUM CHLORIDE 0.9% 100 ML IV SCH (10:25)
[2018-05-05] MEDS ORDERED: METOPROLOL TARTRATE 25MG TABLET PO NR (10:30)
[2018-05-05] MEDS ORDERED: INSULIN GLARGINE UD 100 UNITS/ML SYR SUBCUT NR (10:30)
[2018-05-05] MEDS ORDERED: HYDRALAZINE HCL 50MG TABLET PO SCH (14:00)
[2018-05-05] MEDS ORDERED: GLYBURIDE 5MG TABLET PO NR (16:00)
[2018-05-05] MEDS ORDERED: GLYBURIDE 2.5MG TABLET PO SCH (16:30)
[2018-05-05 18:01] VITALS: BP 131/84
[2018-05-05] MEDS ORDERED: METOPROLOL TARTRATE 50MG TABLET PO SCH (21:00)
[2018-05-06] MEDS ORDERED: GLYBURIDE 2.5MG TABLET PO SCH (06:50)
== END 2018-05-05 18:50 | disposition home or self-care (01) | DRG 637 ==
LOC: ER 12:00 → EDBEDREQSVC 17:01 → EDBEDREQ 17:21 → 3WST 21:26 → EDBEDREQTM 21:28 → EDBEDREQSVC 21:28 → ENRESERV 22:42 → 8WST 05-05 15:39
PROVIDERS: ADMIT Internal Medicine; ATTEND Internal Medicine
DX: E11.01 Type 2 diabetes mellitus with hyperosmolarity with coma (principal); I50.43 Acute on chronic combined systolic (congestive) and diastolic (congestive) heart failure; D68.59 Other primary thrombophilia; I13.0 Hypertensive heart and chronic kidney disease with heart failure and stage 1 through stage 4 chronic kidney disease, or unspecified chronic kidney disease; G40.909 Epilepsy, unspecified, not intractable, without status epilepticus; E11.65 Type 2 diabetes mellitus with hyperglycemia; N18.9 Chronic kidney disease, unspecified; F10.20 Alcohol dependence, uncomplicated; D64.9 Anemia, unspecified; E11.22 Type 2 diabetes mellitus with diabetic chronic kidney disease; E78.00 Pure hypercholesterolemia, unspecified; Z79.02 Long term (current) use of antithrombotics/antiplatelets; Z79.82 Long term (current) use of aspirin; Z79.899 Other long term (current) drug therapy; Z86.73 Personal history of transient ischemic attack (TIA), and cerebral infarction without residual deficits; Z91.19 Patient's noncompliance with other medical treatment and regimen
CPT/HCPCS: 36415; 36600; 71045; 80048; 80320; 82010; 82375; 82805; 82962; 83036; 83605; 83735; 83880; 83930; 84100; 84484; 85027; 93005; 96365; 96375; 97110; 97162; 99291; J1650; J1815; J1953; J2060; J7030; J7050; A4315; G0480

== ENCOUNTER 2018-07-07 10:39 | Inpatient (IN) | payer MEDICARE, OTHER ==
[~2018-07-07] VITALS: Ht 172.7 cm; Wt 69.9 kg
[~2018-07-07 10:39] MED LIST changes: -METO25TA6 PO
[2018-07-07] MEDS ORDERED: SODIUM CHLORIDE 0.9% 1,000 ML IV ONE (11:03)
[2018-07-07 11:17] LABS: BASOPHILS % 0.6 % (0.0-2.0); EOSINOPHILS % 0.6 % (0.0-5.0); HEMATOCRIT. 35.1 % (42.0-52.0); HEMOGLOBIN. 10.9 g/dL (14.0-18.0); LYMPHOCYTES % 17.4 % (20.0-50.0); MEAN CORPUSCULAR HEMOGLOBIN 26.2 pg (28.0-32.0); MEAN CORPUSCULAR VOLUME 84.9 fL (80.0-94.0); MONOCYTES % 5.4 % (2.0-8.0); PLATELET 205 x1000/uL (130-400); RED BLOOD CELL COUNT 4.14 mill/uL (4.7-6.1); RED CELL DISTRIBUTION WIDTH 14.9 % (11.6-14.6)
[2018-07-07 11:21] LABS: CHLORIDE 106 mEq/L (98-107)
[2018-07-07 11:25] LABS: ETHANOL BLOOD < 10 mg/dL
[2018-07-07 11:29] LABS: PARTIAL THROMBOPLASTIN TIME 29.3 sec (23.4-31.0); PROTHROMBIN TIME 10.6 sec (9.6-11.0)
[2018-07-07] MEDS ORDERED: HYDRALAZINE 20MG/ML VIAL IV ONE ×2 (11:30→12:00)
[2018-07-07] MEDS ORDERED: CLONIDINE 0.2MG TABLET PO ONE (12:30)
[2018-07-07] MEDS ORDERED: ASPIRIN 325MG EC TABLET PO ONE (12:30)
[2018-07-07 12:39] LABS: CLARITY URINE CLEAR (CLEAR); COLOR URINE YELLOW (YELLOW); KETONES URINE NEGATIVE (NEGATIVE); LEUKOCYTE ESTERASE URINE 1+ (NEGATIVE); NITRITE URINE NEGATIVE (NEGATIVE); OCCULT BLOOD URINE TRACE (NEGATIVE); PROTEIN URINE 2+ (NEGATIVE); SPECIFIC GRAVITY URINE 1.016 (1.005-1.030); UROBILINOGEN URINE 0.2 E.U./dL (0.2-1.0)
[2018-07-07] MEDS ORDERED: CEFTRIAXONE 1 G PREMIX 50 ML IV ONE (13:00)
[2018-07-07 13:35] LABS: *AMPHETAMINES SCREEN URINE NEGATIVE (NEGATIVE); *BARBITURATES SCREEN URINE NEGATIVE (NEGATIVE); *BENZODIAZEPINES SCREEN URINE NEGATIVE (NEGATIVE); *COCAINE SCREEN URINE NEGATIVE (NEGATIVE); CANNABINOID URINE SCREEN NEGATIVE (NEGATIVE)
[2018-07-07 13:36] LABS: METHADONE URINE SCREEN NEGATIVE (NEGATIVE); OPIATES URINE SCREEN NEGATIVE (NEGATIVE); PHENCYCLIDINE URINE SCREEN NEGATIVE (NEGATIVE)
[2018-07-07 18:33] VITALS: BP 168/95
[2018-07-07 20:00] VITALS: BP 131/85
[2018-07-07] MEDS ORDERED: HYDRALAZINE HCL 50MG TABLET PO NR (20:30)
[2018-07-07] MEDS ORDERED: HYDROCODONE/ACETAMINOPHEN 5/325MG TABLET PO PRN (22:00)
[2018-07-07] MEDS: HYDRALAZINE HCL 50MG TABLET PO SCH (23:42)
[2018-07-08] VITALS (7 sets, daily range): BP systolic 151–175; BP diastolic 83–99
[2018-07-08] MEDS ORDERED: DEXTROSE 50% WATER 50ML SYRINGE IV PRN
[2018-07-08] MEDS: HYDRALAZINE HCL 50MG TABLET PO SCH ×3 (05:12→17:38)
[2018-07-08] MEDS: BLOOD SUGAR DIAGNOSTIC STRIP TEST SCH ×4 (06:17→22:14)
[2018-07-08] MEDS: INSULIN LISPRO 100 UNITS/ML SUBCUT SCH ×3 (06:23→18:03)
[2018-07-08] MEDS: ASPIRIN 81MG TABLET PO SCH (08:30)
[2018-07-08] MEDS: CEFTRIAXONE 1 G PREMIX 50 ML IV SCH (13:10)
[2018-07-08 14:30] LABS: HEMATOCRIT 36.9 % (42.0-52.0); HEMOGLOBIN 11.5 g/dL (14.0-18.0); MEAN CORPUSCULAR HEMOGLOBIN 26.2 pg (28.0-32.0); MEAN CORPUSCULAR VOLUME 84.2 fL (80.0-94.0); PLATELET 218 x1000/uL (130-400); RED BLOOD CELL COUNT 4.39 mill/uL (4.7-6.1); RED CELL DISTRIBUTION WIDTH 14.9 % (11.6-14.6)
[2018-07-08] MEDS ORDERED: MEDICATION NOT ON FORMULARY EA (Clopidogrel Bisulfate (Clopidogrel) 1 TAB) PO SCH (16:00)
[2018-07-08] MEDS ORDERED: LORAZEPAM 2MG/ML CPJ IV PRN ×2 (16:00)
[2018-07-08] MEDS ORDERED: INSULIN GLARGINE UD 100 UNITS/ML SYR SUBCUT NR (17:00)
[2018-07-08] MEDS: ATORVASTATIN CALCIUM 40MG TABLET PO SCH (17:37)
[2018-07-08] MEDS: AMLODIPINE 5MG TABLET PO SCH (17:37)
[2018-07-08] MEDS: CLOPIDOGREL 75MG TABLET PO SCH (17:37)
[2018-07-08] MEDS: SERTRALINE HCL 50MG TABLET PO SCH (17:38)
[2018-07-08] MEDS: TAMSULOSIN HCL 0.4MG SR CAPSULE PO SCH (17:41)
[2018-07-09] VITALS (7 sets, daily range): BP systolic 126–184; BP diastolic 79–112
[2018-07-09] MEDS: HYDRALAZINE HCL 50MG TABLET PO SCH ×4 (00:45→17:30)
[2018-07-09] MEDS: CLONIDINE 0.1MG TABLET PO PRN ×2 (04:28→17:30)
[2018-07-09] MEDS: BLOOD SUGAR DIAGNOSTIC STRIP TEST SCH ×4 (05:49→21:38)
[2018-07-09] MEDS: INSULIN LISPRO 100 UNITS/ML SUBCUT SCH ×4 (06:00→21:38)
[2018-07-09 06:30] LABS: HEMATOCRIT 34.1 % (42.0-52.0); HEMOGLOBIN 10.7 g/dL (14.0-18.0); MEAN CORPUSCULAR HEMOGLOBIN 26.2 pg (28.0-32.0); MEAN CORPUSCULAR VOLUME 83.3 fL (80.0-94.0); PLATELET 189 x1000/uL (130-400); RED BLOOD CELL COUNT 4.09 mill/uL (4.7-6.1); RED CELL DISTRIBUTION WIDTH 14.6 % (11.6-14.6)
[2018-07-09] MEDS: ATORVASTATIN CALCIUM 40MG TABLET PO SCH (09:37)
[2018-07-09] MEDS: SERTRALINE HCL 50MG TABLET PO SCH (09:38)
[2018-07-09] MEDS: ASPIRIN 81MG TABLET PO SCH (09:38)
[2018-07-09] MEDS: CLOPIDOGREL 75MG TABLET PO SCH (09:38)
[2018-07-09] MEDS: TAMSULOSIN HCL 0.4MG SR CAPSULE PO SCH (09:38)
[2018-07-09] MEDS: AMLODIPINE 5MG TABLET PO SCH (09:38)
[2018-07-09] MEDS: INSULIN GLARGINE UD 100 UNITS/ML SYR SUBCUT SCH (09:44)
[2018-07-09] MEDS: CEFTRIAXONE 1 G PREMIX 50 ML IV SCH (14:08)
[2018-07-10] VITALS: BP 158/96
[2018-07-10] MEDS: HYDRALAZINE HCL 50MG TABLET PO SCH ×5 (00:14→23:33)
[2018-07-10 04:00] VITALS: BP 153/107
[2018-07-10] MEDS: BLOOD SUGAR DIAGNOSTIC STRIP TEST SCH ×4 (05:44→21:00)
[2018-07-10] MEDS: INSULIN LISPRO 100 UNITS/ML SUBCUT SCH ×4 (06:20→21:00)
[2018-07-10 08:00] VITALS: BP 168/93
[2018-07-10] MEDS: CLOPIDOGREL 75MG TABLET PO SCH (09:09)
[2018-07-10] MEDS: TAMSULOSIN HCL 0.4MG SR CAPSULE PO SCH (09:10)
[2018-07-10] MEDS: ATORVASTATIN CALCIUM 40MG TABLET PO SCH (09:10)
[2018-07-10] MEDS: SERTRALINE HCL 50MG TABLET PO SCH (09:11)
[2018-07-10] MEDS: AMLODIPINE 5MG TABLET PO SCH (09:11)
[2018-07-10] MEDS: ASPIRIN 81MG TABLET PO SCH (09:11)
[2018-07-10] MEDS: INSULIN GLARGINE UD 100 UNITS/ML SYR SUBCUT SCH (09:11)
[2018-07-10 12:00] VITALS: BP 159/91
[2018-07-10] MEDS: CLONIDINE 0.1MG TABLET PO PRN ×2 (12:22→23:34)
[2018-07-10] MEDS: CEFTRIAXONE 1 G PREMIX 50 ML IV SCH (12:22)
[2018-07-10 16:00] VITALS: BP 134/96
[2018-07-10 20:00] VITALS: BP 167/89
[2018-07-11] VITALS: BP 183/120
[2018-07-11] MEDS: CLONIDINE 0.1MG TABLET PO PRN ×2 (03:41→13:06)
[2018-07-11 04:00] VITALS: BP_SYST 152; BP_SYST 156; BP_DIAS 74; BP_DIAS 86
[2018-07-11] MEDS: BLOOD SUGAR DIAGNOSTIC STRIP TEST SCH ×4 (07:02→22:38)
[2018-07-11] MEDS: HYDRALAZINE HCL 50MG TABLET PO SCH ×3 (07:02→17:55)
[2018-07-11] MEDS: INSULIN LISPRO 100 UNITS/ML SUBCUT SCH ×4 (07:05→22:45)
[2018-07-11 08:00] VITALS: BP 150/84
[2018-07-11] MEDS: TAMSULOSIN HCL 0.4MG SR CAPSULE PO SCH (09:21)
[2018-07-11] MEDS: CLOPIDOGREL 75MG TABLET PO SCH (09:22)
[2018-07-11] MEDS: ATORVASTATIN CALCIUM 40MG TABLET PO SCH (09:23)
[2018-07-11] MEDS: ASPIRIN 81MG TABLET PO SCH (09:23)
[2018-07-11] MEDS: SERTRALINE HCL 50MG TABLET PO SCH (09:24)
[2018-07-11] MEDS: AMLODIPINE 5MG TABLET PO SCH ×2 (09:24→22:37)
[2018-07-11] MEDS: INSULIN GLARGINE UD 100 UNITS/ML SYR SUBCUT SCH (09:25)
[2018-07-11 12:00] VITALS: BP 173/87
[2018-07-11] MEDS: CEFTRIAXONE 1 G PREMIX 50 ML IV SCH (13:07)
[2018-07-11 16:00] VITALS: BP 150/86
[2018-07-11 20:00] VITALS: BP 130/91
[2018-07-12] VITALS (7 sets, daily range): BP systolic 131–181; BP diastolic 85–109
[2018-07-12] MEDS: HYDRALAZINE HCL 50MG TABLET PO SCH ×4 (00:39→17:30)
[2018-07-12] MEDS: CLONIDINE 0.1MG TABLET PO PRN ×2 (03:44→11:56)
[2018-07-12] MEDS: BLOOD SUGAR DIAGNOSTIC STRIP TEST SCH ×4 (06:45→21:15)
[2018-07-12] MEDS: INSULIN LISPRO 100 UNITS/ML SUBCUT SCH ×4 (06:56→21:29)
[2018-07-12] MEDS: CLOPIDOGREL 75MG TABLET PO SCH (12:00)
[2018-07-12] MEDS: TAMSULOSIN HCL 0.4MG SR CAPSULE PO SCH (12:00)
[2018-07-12] MEDS: ASPIRIN 81MG TABLET PO SCH (12:01)
[2018-07-12] MEDS: SERTRALINE HCL 50MG TABLET PO SCH (12:01)
[2018-07-12] MEDS: AMLODIPINE 5MG TABLET PO SCH ×2 (12:14→21:17)
[2018-07-12] MEDS: ATORVASTATIN CALCIUM 40MG TABLET PO SCH (12:14)
[2018-07-12] MEDS: CEFTRIAXONE 1 G PREMIX 50 ML IV SCH (12:56)
[2018-07-12] MEDS ORDERED: LORAZEPAM 2MG/ML CPJ IV PRN (16:00)
[2018-07-12] MEDS ORDERED: HYDROCODONE/ACETAMINOPHEN 5/325MG TABLET PO PRN (16:00)
[2018-07-12] MEDS: CLONIDINE 0.1MG TABLET PO SCH (21:17)
[2018-07-13] VITALS: BP 164/97
[2018-07-13] MEDS: HYDRALAZINE HCL 50MG TABLET PO SCH ×4 (00:37→18:27)
[2018-07-13 04:00] VITALS: BP 157/97
[2018-07-13] MEDS: INSULIN LISPRO 100 UNITS/ML SUBCUT SCH ×4 (06:07→21:59)
[2018-07-13] MEDS: BLOOD SUGAR DIAGNOSTIC STRIP TEST SCH ×4 (06:07→21:51)
[2018-07-13 06:21] LABS: HEMATOCRIT 34.2 % (42.0-52.0); HEMOGLOBIN 10.8 g/dL (14.0-18.0); MEAN CORPUSCULAR HEMOGLOBIN 26.3 pg (28.0-32.0); MEAN CORPUSCULAR VOLUME 83.4 fL (80.0-94.0); PLATELET 177 x1000/uL (130-400); RED CELL DISTRIBUTION WIDTH 14.6 % (11.6-14.6)
[2018-07-13 08:00] VITALS: BP 161/90
[2018-07-13] MEDS: CLOPIDOGREL 75MG TABLET PO SCH (08:17)
[2018-07-13] MEDS: ASPIRIN 81MG TABLET PO SCH (08:17)
[2018-07-13] MEDS: ATORVASTATIN CALCIUM 40MG TABLET PO SCH (08:17)
[2018-07-13] MEDS: SERTRALINE HCL 50MG TABLET PO SCH (08:17)
[2018-07-13] MEDS: TAMSULOSIN HCL 0.4MG SR CAPSULE PO SCH (08:21)
[2018-07-13] MEDS: AMLODIPINE 5MG TABLET PO SCH ×2 (08:22→21:51)
[2018-07-13] MEDS: CLONIDINE 0.1MG TABLET PO SCH ×2 (08:22→21:51)
[2018-07-13] MEDS ORDERED: INSULIN GLARGINE UD 100 UNITS/ML SYR SUBCUT SCH (10:00)
[2018-07-13] MEDS ORDERED: POTASSIUM CHLORIDE 20MEQ TABLET SR PO NR (11:00)
[2018-07-13 12:00] VITALS: BP 146/89
[2018-07-13] MEDS: CEFTRIAXONE 1 G PREMIX 50 ML IV SCH (14:16)
[2018-07-13 16:00] VITALS: BP 153/99
[2018-07-13 20:00] VITALS: BP 152/87
[2018-07-14] VITALS (7 sets, daily range): BP systolic 137–154; BP diastolic 75–92
[2018-07-14] MEDS: HYDRALAZINE HCL 50MG TABLET PO SCH ×4 (00:13→17:25)
[2018-07-14] MEDS: BLOOD SUGAR DIAGNOSTIC STRIP TEST SCH ×3 (06:22→17:14)
[2018-07-14] MEDS: INSULIN LISPRO 100 UNITS/ML SUBCUT SCH ×3 (06:23→17:14)
[2018-07-14] MEDS: CLOPIDOGREL 75MG TABLET PO SCH (09:35)
[2018-07-14] MEDS: ATORVASTATIN CALCIUM 40MG TABLET PO SCH (09:35)
[2018-07-14] MEDS: AMLODIPINE 5MG TABLET PO SCH (09:35)
[2018-07-14] MEDS: SERTRALINE HCL 50MG TABLET PO SCH (09:35)
[2018-07-14] MEDS: TAMSULOSIN HCL 0.4MG SR CAPSULE PO SCH (09:36)
[2018-07-14] MEDS: ASPIRIN 81MG TABLET PO SCH (09:36)
[2018-07-14] MEDS: CLONIDINE 0.1MG TABLET PO SCH (09:36)
[2018-07-14] MEDS ORDERED: INSULIN GLARGINE UD 100 UNITS/ML SYR SUBCUT SCH (10:00)
[2018-07-14] MEDS: CEFTRIAXONE 1 G PREMIX 50 ML IV SCH (13:18)
== END 2018-07-14 20:00 | disposition home health service (06) | DRG 100 ==
LOC: ER 10:39 → 5WST 12:27 → CANRESERV 13:32 → ENRESERV 13:32
PROVIDERS: ADMIT Internal Medicine; ATTEND Internal Medicine
DX: G40.909 Epilepsy, unspecified, not intractable, without status epilepticus (principal); I50.43 Acute on chronic combined systolic (congestive) and diastolic (congestive) heart failure; I13.0 Hypertensive heart and chronic kidney disease with heart failure and stage 1 through stage 4 chronic kidney disease, or unspecified chronic kidney disease; N39.0 Urinary tract infection, site not specified; D68.59 Other primary thrombophilia; N17.9 Acute kidney failure, unspecified; G90.8 Other disorders of autonomic nervous system; I16.0 Hypertensive urgency; E78.5 Hyperlipidemia, unspecified; E11.65 Type 2 diabetes mellitus with hyperglycemia; D64.9 Anemia, unspecified; N18.9 Chronic kidney disease, unspecified; E11.42 Type 2 diabetes mellitus with diabetic polyneuropathy; R26.9 Unspecified abnormalities of gait and mobility; E11.22 Type 2 diabetes mellitus with diabetic chronic kidney disease; Z60.2 Problems related to living alone; Z86.73 Personal history of transient ischemic attack (TIA), and cerebral infarction without residual deficits; Z59.0 Homelessness; Z91.14 Patient's other noncompliance with medication regimen; Z91.19 Patient's noncompliance with other medical treatment and regimen; Z79.4 Long term (current) use of insulin; Z79.899 Other long term (current) drug therapy; Z79.82 Long term (current) use of aspirin
CPT/HCPCS: 36415; 71045; 80048; 80305; 80320; 82962; 83036; 83880; 84484; 85027; 87077; 92610; 93005; 93970; 96361; 96374; 97162; 97530; 99285; J0360; J0696; J1815; J7030; J7040; G0480

== ENCOUNTER 2019-02-07 09:40 | Inpatient (IN) | payer MEDICARE, OTHER ==
[~2019-02-07] VITALS: Ht 172.7 cm; Wt 64.0 kg
[~2019-02-07 09:40] MED LIST changes: -ASPI-1159 PO; +ASPI-1393 PO
[2019-02-07 10:28] LABS: BASOPHILS % 1.2 % (0.0-2.0); EOSINOPHILS % 0.5 % (0.0-5.0); HEMATOCRIT. 39.1 % (42.0-52.0); HEMOGLOBIN. 12.3 g/dL (14.0-18.0); LYMPHOCYTES % 19.6 % (20.0-50.0); MEAN CORPUSCULAR HEMOGLOBIN 26.1 pg (28.0-32.0); MEAN CORPUSCULAR VOLUME 82.8 fL (80.0-94.0); MEAN PLATELET VOLUME 9.2 fl (7.4-10.4); MONOCYTES % 2.6 % (2.0-8.0); NEUTROPHILS % 76.1 % (40.0-76.0); PLATELET 233 x1000/uL (130-400); RED BLOOD CELL COUNT 4.73 mill/uL (4.7-6.1); RED CELL DISTRIBUTION WIDTH 17.8 % (11.6-14.6)
[2019-02-07 10:36] LABS: CHLORIDE 107 mEq/L (98-107); INR 1.1; PROTHROMBIN TIME 11.7 sec (9.6-11.0)
[2019-02-07 10:40] LABS: ETHANOL BLOOD < 10 mg/dL
[2019-02-07 10:43] LABS: LDL CHOLESTEROL 93 mg/dL (5-100)
[2019-02-07] MEDS ORDERED: ASPIRIN 81MG TABLET PO ONE (10:45)
[2019-02-07] MEDS ORDERED: HYDRALAZINE 20MG/ML VIAL IV ONE ×2 (10:45→11:45)
[2019-02-07] MEDS ORDERED: LEVETIRACETAM 500MG PREMIX 100 ML IV NR (10:45)
[2019-02-07] MEDS ORDERED: HYDRALAZINE 20MG/ML VIAL ONE (11:00)
[2019-02-07 11:43] LABS: CLARITY URINE CLEAR (CLEAR); COLOR URINE YELLOW (YELLOW); KETONES URINE NEGATIVE (NEGATIVE); LEUKOCYTE ESTERASE URINE NEGATIVE (NEGATIVE); NITRITE URINE NEGATIVE (NEGATIVE); OCCULT BLOOD URINE NEGATIVE (NEGATIVE); PH URINE 6.5 (4.5-8.0); PROTEIN URINE 3+ (NEGATIVE); SPECIFIC GRAVITY URINE 1.015 (1.005-1.030)
[2019-02-07] MEDS ORDERED: ASPIRIN 300MG SUPP PR ONE (11:45)
[2019-02-07] MEDS ORDERED: DILTIAZEM HCL 30MG TABLET PO ONE (11:45)
[2019-02-07 12:13] LABS: *AMPHETAMINES SCREEN URINE NEGATIVE (NEGATIVE); *BARBITURATES SCREEN URINE NEGATIVE (NEGATIVE); *BENZODIAZEPINES SCREEN URINE NEGATIVE (NEGATIVE); *COCAINE SCREEN URINE NEGATIVE (NEGATIVE); METHADONE URINE SCREEN NEGATIVE (NEGATIVE); OPIATES URINE SCREEN NEGATIVE (NEGATIVE)
[2019-02-07 12:14] LABS: CANNABINOID URINE SCREEN NEGATIVE (NEGATIVE); PHENCYCLIDINE URINE SCREEN NEGATIVE (NEGATIVE)
[2019-02-07] MEDS ORDERED: ACETAMINOPHEN 325MG TABLET PO PRN (13:45)
[2019-02-07] MEDS ORDERED: LORAZEPAM 0.5MG TABLET PO PRN (13:45)
[2019-02-07] MEDS ORDERED: AMLODIPINE 10MG TABLET PO SCH ×2 (13:45→22:00)
[2019-02-07] MEDS ORDERED: DEXTROSE 50% WATER 50ML SYRINGE IV PRN (13:45)
[2019-02-07] MEDS ORDERED: ACETAMINOPHEN 650MG SUPP PR PRN (13:45)
[2019-02-07] MEDS ORDERED: ONDANSETRON HCL 4MG/2ML INJ IV PRN (13:45)
[2019-02-07] MEDS ORDERED: IPRATROPIUM/ALBUTEROL 0.5-3(2.5)MG/3ML NEB NEB PRN (13:45)
[2019-02-07] MEDS ORDERED: DOCUSATE SODIUM 100MG CAPSULE PO PRN (13:45)
[2019-02-07] MEDS ORDERED: HYDROCODONE/ACETAMINOPHEN 5/325MG TABLET PO PRN (13:45)
[2019-02-07] MEDS ORDERED: MAGNESIUM/ALUMINUM HYDROXIDE/SIMETHICONE 30ML UDC PO PRN (13:45)
[2019-02-07] MEDS ORDERED: NA PHOS,M-B/NA PHOS,DI-BA ENEMA 118ML PR PRN (13:45)
[2019-02-07] MEDS ORDERED: DIPHENHYDRAMINE 50MG/ML VIAL IV PRN (13:45)
[2019-02-07] MEDS ORDERED: GUAIFENESIN 200MG/10ML SUGAR FREE UDC PO PRN (13:45)
[2019-02-07] MEDS ORDERED: DILTIAZEM HCL 30MG TABLET PO SCH (14:00)
[2019-02-07 16:10] LABS: CREATINE KINASE MB FRACTION 2.9 ng/mL (0.5-3.6)
[2019-02-07] MEDS ORDERED: POTASSIUM CHLORIDE 20MEQ TABLET SR PO NR (17:15)
[2019-02-07] MEDS ORDERED: DILTIAZEM HCL 30MG TABLET PO NR (17:15)
[2019-02-07] MEDS ORDERED: AMLODIPINE 10MG TABLET PO NR (18:00)
[2019-02-07] MEDS: CLONIDINE 0.1MG TABLET PO PRN (19:51)
[2019-02-07] MEDS: INSULIN LISPRO 100 UNITS/ML SUBCUT SCH ×2 (20:12→21:00)
[2019-02-07 20:55] VITALS: BP 150/95
[2019-02-07 21:00] VITALS: BP 141/95
[2019-02-07] MEDS: BLOOD SUGAR DIAGNOSTIC STRIP TEST SCH (22:25)
[2019-02-07] MEDS: LEVETIRACETAM 500MG TABLET PO SCH (22:28)
[2019-02-07] MEDS: DILTIAZEM HCL 30MG TABLET PO SCH (22:31)
[2019-02-08] VITALS: BP 156/107
[2019-02-08] MEDS ORDERED: POTASSIUM CHLORIDE 20MEQ TABLET SR PO NR ×2 (00:15→20:45)
[2019-02-08] MEDS: CLONIDINE 0.1MG TABLET PO PRN ×3 (00:20→21:43)
[2019-02-08 00:36] LABS: CREATINE KINASE MB FRACTION 4.2 ng/mL (0.5-3.6)
[2019-02-08 04:00] VITALS: BP 147/97
[2019-02-08] MEDS: BLOOD SUGAR DIAGNOSTIC STRIP TEST SCH ×4 (06:25→21:39)
[2019-02-08] MEDS: INSULIN LISPRO 100 UNITS/ML SUBCUT SCH ×4 (06:25→21:54)
[2019-02-08] MEDS: DILTIAZEM HCL 30MG TABLET PO SCH ×3 (06:48→21:42)
[2019-02-08 08:00] VITALS: BP 155/114
[2019-02-08 08:06] LABS: HEMOGLOBIN. 10.9 g/dL (14.0-18.0); MEAN CORPUSCULAR HEMOGLOBIN 26.1 pg (28.0-32.0); MEAN CORPUSCULAR VOLUME 81.6 fL (80.0-94.0); PLATELET 182 x1000/uL (130-400); RED BLOOD CELL COUNT 4.17 mill/uL (4.7-6.1); RED CELL DISTRIBUTION WIDTH 17.3 % (11.6-14.6)
[2019-02-08 08:07] LABS: CHLORIDE 111 mEq/L (98-107)
[2019-02-08 08:15] LABS: T4 FREE 1.39 ng/dL (0.76-1.46)
[2019-02-08 08:16] LABS: HDL CHOLESTEROL 77 mg/dL (40-59); LDL CHOLESTEROL 80 mg/dL (5-100)
[2019-02-08] MEDS: LEVETIRACETAM 500MG TABLET PO SCH ×2 (09:34→21:39)
[2019-02-08] MEDS: TAMSULOSIN HCL 0.4MG SR CAPSULE PO SCH (09:35)
[2019-02-08] MEDS: ASPIRIN 81MG EC TABLET PO SCH (09:35)
[2019-02-08] MEDS: CLOPIDOGREL 75MG TABLET PO SCH (09:35)
[2019-02-08] MEDS: SERTRALINE HCL 50MG TABLET PO SCH (09:35)
[2019-02-08 12:00] VITALS: BP 138/92
[2019-02-08 13:10] LABS: PLATELET ESTIMATE NORMAL
[2019-02-08 16:00] VITALS: BP 140/95
[2019-02-08 20:00] VITALS: BP 159/116
[2019-02-08] MEDS ORDERED: ATORVASTATIN CALCIUM 40MG TABLET PO SCH (21:00)
[2019-02-09] VITALS: BP 151/105
[2019-02-09] MEDS: CLONIDINE 0.1MG TABLET PO PRN ×2 (02:01→08:42)
[2019-02-09 04:00] VITALS: BP 145/99
[2019-02-09] MEDS: DILTIAZEM HCL 30MG TABLET PO SCH (06:36)
[2019-02-09] MEDS: BLOOD SUGAR DIAGNOSTIC STRIP TEST SCH (06:36)
[2019-02-09] MEDS: INSULIN LISPRO 100 UNITS/ML SUBCUT SCH (06:39)
[2019-02-09] MEDS: LEVETIRACETAM 500MG TABLET PO SCH (08:35)
[2019-02-09] MEDS: ASPIRIN 81MG EC TABLET PO SCH (08:35)
[2019-02-09] MEDS: CLOPIDOGREL 75MG TABLET PO SCH (08:36)
[2019-02-09] MEDS: TAMSULOSIN HCL 0.4MG SR CAPSULE PO SCH (08:38)
[2019-02-09] MEDS: SERTRALINE HCL 50MG TABLET PO SCH (08:38)
[2019-02-09 11:00] VITALS: BP 152/100
== END 2019-02-09 11:20 | disposition home or self-care (01) | DRG 291 ==
LOC: ER 09:40 → 5WST 13:13 → EDBEDREQ 13:18 → EDBEDREQTM 13:18 → EDBEDREQSVC 15:34 → ENRESERV 17:58
PROVIDERS: ADMIT Internal Medicine; ATTEND Internal Medicine
DX: I13.0 Hypertensive heart and chronic kidney disease with heart failure and stage 1 through stage 4 chronic kidney disease, or unspecified chronic kidney disease (principal); I50.43 Acute on chronic combined systolic (congestive) and diastolic (congestive) heart failure; D68.59 Other primary thrombophilia; R47.01 Aphasia; E78.5 Hyperlipidemia, unspecified; E87.6 Hypokalemia; G40.909 Epilepsy, unspecified, not intractable, without status epilepticus; I34.0 Nonrheumatic mitral (valve) insufficiency; R00.0 Tachycardia, unspecified; N18.9 Chronic kidney disease, unspecified; N40.0 Benign prostatic hyperplasia without lower urinary tract symptoms; E11.22 Type 2 diabetes mellitus with diabetic chronic kidney disease; Z86.73 Personal history of transient ischemic attack (TIA), and cerebral infarction without residual deficits; Z91.14 Patient's other noncompliance with medication regimen; Z91.19 Patient's noncompliance with other medical treatment and regimen; Z79.82 Long term (current) use of aspirin; Z79.899 Other long term (current) drug therapy
CPT/HCPCS: 36415; 71045; 80061; 80305; 80320; 81003; 82550; 82553; 82962; 83036; 83721; 83735; 84439; 84443; 84484; 93005; 93970; 96365; 97162; 99291; J0360; J1815; J1953; G0480

== ENCOUNTER 2019-03-03 22:07 | Inpatient (IN) | payer MEDICARE, OTHER ==
[~2019-03-03] VITALS: Ht 167.6 cm; Wt 64.4 kg
[~2019-03-03 22:07] MED LIST changes: -ASPI-1393 PO; +ASPI-1497 PO
[2019-03-03] MEDS ORDERED: ASPIRIN 81MG TABLET PO ONE (22:30)
[2019-03-03] MEDS ORDERED: CLONIDINE 0.2MG TABLET PO ONE (22:30)
[2019-03-03 23:09] LABS: BASOPHILS % 1.6 % (0.0-2.0); EOSINOPHILS % 0.3 % (0.0-5.0); HEMATOCRIT. 35.6 % (42.0-52.0); HEMOGLOBIN. 11.2 g/dL (14.0-18.0); LYMPHOCYTES % 14.4 % (20.0-50.0); MEAN CORPUSCULAR HEMOGLOBIN 25.8 pg (28.0-32.0); MEAN PLATELET VOLUME 9.3 fl (7.4-10.4); MONOCYTES % 8.6 % (2.0-8.0); NEUTROPHILS % 75.1 % (40.0-76.0); PLATELET 230 x1000/uL (130-400); RED BLOOD CELL COUNT 4.35 mill/uL (4.7-6.1); RED CELL DISTRIBUTION WIDTH 17.4 % (11.6-14.6)
[2019-03-03 23:15] LABS: CHLORIDE 112 mEq/L (98-107)
[2019-03-03 23:20] LABS: INR 1.1; PARTIAL THROMBOPLASTIN TIME 27.3 sec (23.4-31.0); PROTHROMBIN TIME 11.4 sec (9.6-11.0)
[2019-03-03 23:22] LABS: ETHANOL BLOOD < 10 mg/dL
[2019-03-04] MEDS ORDERED: HYDRALAZINE 20MG/ML VIAL IV ONE
[2019-03-04 00:45] LABS: *AMPHETAMINES SCREEN URINE NEGATIVE (NEGATIVE); *BARBITURATES SCREEN URINE NEGATIVE (NEGATIVE); *BENZODIAZEPINES SCREEN URINE NEGATIVE (NEGATIVE); *COCAINE SCREEN URINE NEGATIVE (NEGATIVE)
[2019-03-04 00:46] LABS: CANNABINOID URINE SCREEN NEGATIVE (NEGATIVE); METHADONE URINE SCREEN NEGATIVE (NEGATIVE); OPIATES URINE SCREEN NEGATIVE (NEGATIVE); PHENCYCLIDINE URINE SCREEN NEGATIVE (NEGATIVE)
[2019-03-04] MEDS ORDERED: NICARDIPINE 40MG/200ML PREMIX 200 ML IV PRN ×2 (01:45→02:00)
[2019-03-04] MEDS ORDERED: AMLODIPINE 10MG TABLET PO SCH (07:45)
[2019-03-04] MEDS ORDERED: METOPROLOL TARTRATE 25MG TABLET PO SCH (07:45)
[2019-03-04] MEDS ORDERED: ACETAMINOPHEN 650MG SUPP PR PRN (07:45)
[2019-03-04] MEDS ORDERED: HYDROCODONE/ACETAMINOPHEN 5/325MG TABLET PO PRN (07:45)
[2019-03-04] MEDS ORDERED: ACETAMINOPHEN 325MG TABLET PO PRN (07:45)
[2019-03-04] MEDS ORDERED: IPRATROPIUM/ALBUTEROL 0.5-3(2.5)MG/3ML NEB HHN PRN (07:45)
[2019-03-04] MEDS ORDERED: ONDANSETRON HCL 4MG/2ML INJ IV PRN (07:45)
[2019-03-04] MEDS ORDERED: MAGNESIUM/ALUMINUM HYDROXIDE/SIMETHICONE 30ML UDC PO PRN (07:45)
[2019-03-04] MEDS ORDERED: NA PHOS,M-B/NA PHOS,DI-BA ENEMA 118ML PR PRN (07:45)
[2019-03-04] MEDS ORDERED: LISINOPRIL 10MG TABLET PO SCH (07:45)
[2019-03-04] MEDS ORDERED: DIPHENHYDRAMINE 50MG/ML VIAL IV PRN (07:45)
[2019-03-04 10:08] LABS: BASOPHILS % 1.4 % (0.0-2.0); EOSINOPHILS % 0.7 % (0.0-5.0); HEMATOCRIT. 33.3 % (42.0-52.0); HEMOGLOBIN. 10.6 g/dL (14.0-18.0); LYMPHOCYTES % 16.4 % (20.0-50.0); MEAN CORPUSCULAR HEMOGLOBIN 25.9 pg (28.0-32.0); MEAN CORPUSCULAR VOLUME 81.5 fL (80.0-94.0); MEAN PLATELET VOLUME 8.6 fl (7.4-10.4); MONOCYTES % 8.7 % (2.0-8.0); NEUTROPHILS % 72.8 % (40.0-76.0); PLATELET 214 x1000/uL (130-400); RED BLOOD CELL COUNT 4.09 mill/uL (4.7-6.1); RED CELL DISTRIBUTION WIDTH 17.6 % (11.6-14.6)
[2019-03-04 10:19] LABS: CHLORIDE 114 mEq/L (98-107)
[2019-03-04 10:47] LABS: CREATINE KINASE MB FRACTION 4.7 ng/mL (0.5-3.6)
[2019-03-04] MEDS ORDERED: SERTRALINE HCL 50MG TABLET PO SCH (15:30)
[2019-03-04] MEDS ORDERED: TAMSULOSIN HCL 0.4MG SR CAPSULE PO SCH (16:00)
[2019-03-04] MEDS ORDERED: CLOPIDOGREL 75MG TABLET PO SCH (16:00)
[2019-03-04 16:42] VITALS: BP 165/110
[2019-03-04] MEDS: LISINOPRIL 10MG TABLET PO SCH (17:55)
[2019-03-04] MEDS: CLOPIDOGREL 75MG TABLET PO SCH (17:55)
[2019-03-04] MEDS: SERTRALINE HCL 50MG TABLET PO SCH (17:56)
[2019-03-04] MEDS: ENOXAPARIN 40MG/0.4ML SYR SUBCUT SCH (17:56)
[2019-03-04] MEDS: CLONIDINE 0.1MG TABLET PO PRN (17:57)
[2019-03-04] MEDS: TAMSULOSIN HCL 0.4MG SR CAPSULE PO SCH (17:58)
[2019-03-04 20:00] VITALS: BP 164/108
[2019-03-04] MEDS ORDERED: DEXTROSE 50% WATER 50ML SYRINGE IV PRN (20:15)
[2019-03-04] MEDS: ATORVASTATIN CALCIUM 40MG TABLET PO SCH (20:21)
[2019-03-04] MEDS: CARVEDILOL 12.5MG TABLET PO SCH (20:24)
[2019-03-04] MEDS: BLOOD SUGAR DIAGNOSTIC STRIP TEST SCH (20:35)
[2019-03-04] MEDS: SODIUM CHLORIDE 0.9% INJ 3ML FLUSH IVF SCH (21:11)
[2019-03-04] MEDS: INSULIN LISPRO 100 UNITS/ML SUBCUT SCH (21:14)
[2019-03-05] VITALS (7 sets, daily range): BP systolic 125–168; BP diastolic 80–115
[2019-03-05] MEDS: SODIUM CHLORIDE 0.9% INJ 3ML FLUSH IVF SCH ×3 (06:00→22:17)
[2019-03-05] MEDS: BLOOD SUGAR DIAGNOSTIC STRIP TEST SCH ×4 (06:52→21:00)
[2019-03-05] MEDS: INSULIN LISPRO 100 UNITS/ML SUBCUT SCH ×4 (07:50→22:18)
[2019-03-05 08:05] LABS: BASOPHILS % 1.3 % (0.0-2.0); EOSINOPHILS % 1.1 % (0.0-5.0); HEMATOCRIT. 34.3 % (42.0-52.0); HEMOGLOBIN. 10.7 g/dL (14.0-18.0); LYMPHOCYTES % 30.2 % (20.0-50.0); MEAN CORPUSCULAR HEMOGLOBIN 25.3 pg (28.0-32.0); MEAN CORPUSCULAR VOLUME 81.5 fL (80.0-94.0); MEAN PLATELET VOLUME 9.3 fl (7.4-10.4); MONOCYTES % 9.8 % (2.0-8.0); NEUTROPHILS % 57.6 % (40.0-76.0); PLATELET 215 x1000/uL (130-400); RED BLOOD CELL COUNT 4.21 mill/uL (4.7-6.1); RED CELL DISTRIBUTION WIDTH 17.5 % (11.6-14.6)
[2019-03-05 08:21] LABS: CHLORIDE 111 mEq/L (98-107)
[2019-03-05 08:31] LABS: LDL CHOLESTEROL 67 mg/dL (5-100)
[2019-03-05 08:32] LABS: HDL CHOLESTEROL 92 mg/dL (40-59)
[2019-03-05] MEDS: SERTRALINE HCL 50MG TABLET PO SCH (10:05)
[2019-03-05] MEDS: CLOPIDOGREL 75MG TABLET PO SCH (10:05)
[2019-03-05] MEDS: TAMSULOSIN HCL 0.4MG SR CAPSULE PO SCH (10:07)
[2019-03-05] MEDS: CARVEDILOL 12.5MG TABLET PO SCH ×2 (10:08→20:45)
[2019-03-05] MEDS: LISINOPRIL 10MG TABLET PO SCH ×2 (10:08→17:59)
[2019-03-05] MEDS ORDERED: LISI10TA5 PO (16:03)
[2019-03-05] MEDS ORDERED: COR12 PO (16:03)
[2019-03-05] MEDS: ENOXAPARIN 40MG/0.4ML SYR SUBCUT SCH (17:59)
[2019-03-05] MEDS ORDERED: HYDRALAZINE 20MG/ML VIAL IV PRN (20:15)
[2019-03-05] MEDS ORDERED: AMLODIPINE 10MG TABLET PO NR (20:30)
[2019-03-05] MEDS: ATORVASTATIN CALCIUM 40MG TABLET PO SCH (20:44)
[2019-03-06] VITALS (7 sets, daily range): BP systolic 124–161; BP diastolic 90–112
[2019-03-06] MEDS: CLONIDINE 0.1MG TABLET PO PRN (01:04)
[2019-03-06 05:46] LABS: BG BASE EXCESS -0.2 mmol/L (-2.0-2.0); BG CARBOXYHEMOGLOBIN 0.4 % (0.5-1.5); BG FRACTION INSPIRED OXYGEN 28; BG HCO3 ACT 24.4 mmol/L (22.0-26.0); BG METHEMOGLOBIN 0.3 % (0.0-1.5); BG OXYHEMOGLOBIN 98.3 % (94.0-97.0); BG PCO2 39.7 mmHg (35.0-45.0); BG PH 7.406 (7.350-7.450); BG PO2 146.7 mmHg (75.0-100.0); BG SAMPLE SITE RIGHT RADIAL; BG TOTAL HEMOGLOBIN 12.1 g/dL (12.0-18.0); BG VENT MODE NASAL CANNULA
[2019-03-06] MEDS: BLOOD SUGAR DIAGNOSTIC STRIP TEST SCH ×4 (06:52→21:00)
[2019-03-06] MEDS: SODIUM CHLORIDE 0.9% INJ 3ML FLUSH IVF SCH ×2 (06:53→14:00)
[2019-03-06] MEDS: LISINOPRIL 10MG TABLET PO SCH (08:39)
[2019-03-06] MEDS: CLOPIDOGREL 75MG TABLET PO SCH (08:39)
[2019-03-06] MEDS: SERTRALINE HCL 50MG TABLET PO SCH (08:39)
[2019-03-06] MEDS: TAMSULOSIN HCL 0.4MG SR CAPSULE PO SCH (08:40)
[2019-03-06] MEDS: CARVEDILOL 12.5MG TABLET PO SCH ×2 (08:43→21:12)
[2019-03-06] MEDS: INSULIN LISPRO 100 UNITS/ML SUBCUT SCH ×4 (08:45→21:16)
[2019-03-06] MEDS ORDERED: AMLO10TA4 MT (17:28)
[2019-03-06] MEDS: ENOXAPARIN 40MG/0.4ML SYR SUBCUT SCH (20:09)
[2019-03-06] MEDS ORDERED: LISINOPRIL 20MG TABLET PO SCH (21:00)
[2019-03-06] MEDS: ATORVASTATIN CALCIUM 40MG TABLET PO SCH (21:10)
== END 2019-03-07 | disposition home or self-care (01) | DRG 305 ==
LOC: ER 22:07 → EDBEDREQTM 03-04 01:35 → EDBEDREQ 03-04 01:35 → EDBEDREQDT 03-04 01:35 → EDBEDREQSVC 03-04 01:35 → ENRESERV 03-04 16:11 → 6WST 03-04 17:10
PROVIDERS: ADMIT Family Medicine; ATTEND Family Medicine
DX: I16.1 Hypertensive emergency (principal); E44.1 Mild protein-calorie malnutrition; R47.01 Aphasia; I42.9 Cardiomyopathy, unspecified; R07.89 Other chest pain; I13.0 Hypertensive heart and chronic kidney disease with heart failure and stage 1 through stage 4 chronic kidney disease, or unspecified chronic kidney disease; I50.9 Heart failure, unspecified; N18.2 Chronic kidney disease, stage 2 (mild); E11.22 Type 2 diabetes mellitus with diabetic chronic kidney disease; Z79.02 Long term (current) use of antithrombotics/antiplatelets; I69.320 Aphasia following cerebral infarction; Z91.19 Patient's noncompliance with other medical treatment and regimen; Z68.22 Body mass index [BMI] 22.0-22.9, adult; Z79.899 Other long term (current) drug therapy; Z79.82 Long term (current) use of aspirin
CPT/HCPCS: 36415; 36600; 71045; 76770; 80048; 80053; 80061; 80305; 80320; 82375; 82550; 82553; 82805; 82962; 83880; 84484; 85025; 93005; 93306; 94640; 96365; 96372; 96375; 97162; 99291; J0360; J1650; J1815; G0480

== ENCOUNTER 2019-03-27 17:36 | Inpatient (IN) | payer MEDICARE, OTHER ==
[~2019-03-27] VITALS: Ht 180.3 cm; Wt 70.4 kg
[~2019-03-27 17:36] MED LIST changes: +AMLO10TA4 MT; -AMLO10TA4 PO; +COR12 PO; +LISI10TA5 PO
[2019-03-27 18:25] LABS: HEMATOCRIT. 44.9 % (42.0-52.0); HEMOGLOBIN. 13.5 g/dL (14.0-18.0); MEAN CORPUSCULAR HEMOGLOBIN 25.5 pg (28.0-32.0); MEAN CORPUSCULAR VOLUME 84.8 fL (80.0-94.0); MEAN PLATELET VOLUME 10.4 fl (7.4-10.4); PLATELET 186 x1000/uL (130-400)
[2019-03-27 19:12] LABS: PLATELET ESTIMATE NORMAL
[2019-03-27 19:33] LABS: CHLORIDE 122 mEq/L (98-107)
[2019-03-27 19:37] LABS: ETHANOL BLOOD < 10 mg/dL
[2019-03-27 19:43] LABS: VALPROIC ACID <3.0 ug/mL ug/mL (50-100)
[2019-03-27 19:48] LABS: CARBAMAZEPINE < 0.5 ug/mL (4-12); PHENOBARBITAL < 2.1 ug/mL (15.0-40.0)
[2019-03-27] MEDS ORDERED: SODIUM CHLORIDE 0.9% 1,000 ML IV ONE ×2 (20:00)
[2019-03-27] MEDS ORDERED: LEVETIRACETAM 500MG PREMIX 100 ML IV ONE (20:00)
[2019-03-27] MEDS ORDERED: SODIUM CHLORIDE 0.45% 1,000 ML IV ONE (21:15)
[2019-03-27] MEDS ORDERED: HYDRALAZINE 20MG/ML VIAL IV ONE (22:30)
[2019-03-28 09:50] VITALS: BP 167/98
[2019-03-28 10:00] VITALS: BP 167/98
[2019-03-28] MEDS ORDERED: LIP40 MT (10:12)
[2019-03-28] MEDS ORDERED: KEPP500 PO (10:15)
[2019-03-28] MEDS ORDERED: DEXT 5%/0.9% NACL 1,000 ML IV SCH (10:15)
[2019-03-28] MEDS ORDERED: DILT120T13 MT (11:03)
[2019-03-28 12:00] VITALS: BP 175/97
[2019-03-28] MEDS ORDERED: ONDANSETRON HCL 4MG/2ML INJ IV PRN (12:45)
[2019-03-28 13:13] LABS: HEMOGLOBIN. 12.5 g/dL (14.0-18.0); MEAN CORPUSCULAR HEMOGLOBIN 25.4 pg (28.0-32.0); MEAN CORPUSCULAR VOLUME 83.5 fL (80.0-94.0); MEAN PLATELET VOLUME 9.2 fl (7.4-10.4); PLATELET 125 x1000/uL (130-400); RED BLOOD CELL COUNT 4.91 mill/uL (4.7-6.1); RED CELL DISTRIBUTION WIDTH 18.1 % (11.6-14.6)
[2019-03-28] MEDS ORDERED: ASPIRIN 300MG SUPP PR SCH (14:00)
[2019-03-28 15:12] LABS: HEPATITIS B SURFACE ANTIGEN NEGATIVE
[2019-03-28] MEDS: HYDRALAZINE 20MG/ML VIAL IV PRN ×2 (15:18→23:51)
[2019-03-28] MEDS: ENOXAPARIN 30MG/0.3ML SYR SUBCUT SCH (15:21)
[2019-03-28] MEDS: DEXTROSE 5% WATER 1,000 ML IV SCH (15:22)
[2019-03-28 15:42] LABS: HEPATITIS A AB IGM NEGATIVE (NEGATIVE)
[2019-03-28 16:00] VITALS: BP 161/93
[2019-03-28 16:37] LABS: PLATELET ESTIMATE DECREASED
[2019-03-28 20:00] VITALS: BP 160/91
[2019-03-28] MEDS: ENALAPRIL 1.25MG/ML VIAL 1ML IV SCH ×2 (21:38→23:51)
[2019-03-28] MEDS: LEVETIRACETAM 500MG PREMIX 100 ML IV SCH (21:38)
[2019-03-29] VITALS (8 sets, daily range): BP systolic 146–168; BP diastolic 86–110
[2019-03-29] MEDS: DEXTROSE 5% WATER 1,000 ML IV SCH ×2 (05:10→22:42)
[2019-03-29] MEDS: ENALAPRIL 1.25MG/ML VIAL 1ML IV SCH ×2 (05:10→12:11)
[2019-03-29 06:37] LABS: HEMATOCRIT. 40.5 % (42.0-52.0); HEMOGLOBIN. 12.6 g/dL (14.0-18.0); MEAN CORPUSCULAR HEMOGLOBIN 25.8 pg (28.0-32.0); MEAN CORPUSCULAR VOLUME 82.9 fL (80.0-94.0); MEAN PLATELET VOLUME 9.5 fl (7.4-10.4); PLATELET 110 x1000/uL (130-400); RED BLOOD CELL COUNT 4.88 mill/uL (4.7-6.1); RED CELL DISTRIBUTION WIDTH 17.8 % (11.6-14.6)
[2019-03-29] MEDS: CLOPIDOGREL 75MG TABLET PO SCH (09:00)
[2019-03-29] MEDS ORDERED: DEXTROSE 50% WATER 50ML SYRINGE IV PRN (09:15)
[2019-03-29] MEDS: ENOXAPARIN 30MG/0.3ML SYR SUBCUT SCH (09:57)
[2019-03-29] MEDS: LEVETIRACETAM 500MG PREMIX 100 ML IV SCH ×2 (09:58→20:47)
[2019-03-29] MEDS ORDERED: ASPIRIN 300MG SUPP PR SCH (11:00)
[2019-03-29 11:08] LABS: T4 FREE 1.28 ng/dL (0.76-1.46)
[2019-03-29 12:17] LABS: VITAMIN B12 SERUM >2000 pg/mL pg/mL (211-911)
[2019-03-29] MEDS: BLOOD SUGAR DIAGNOSTIC STRIP TEST SCH ×3 (12:40→20:54)
[2019-03-29] MEDS: INSULIN LISPRO 100 UNITS/ML SUBCUT SCH ×3 (13:10→20:54)
[2019-03-29 13:34] LABS: PLATELET ESTIMATE DECREASED
[2019-03-29] MEDS ORDERED: ASPIRIN 300MG SUPP PR PRN (18:00)
[2019-03-29] MEDS: ENALAPRIL 2.5MG/2ML VIAL 2ML IV SCH (18:43)
[2019-03-29 20:18] LABS: *BARBITURATES SCREEN URINE NEGATIVE (NEGATIVE)
[2019-03-29 20:19] LABS: *AMPHETAMINES SCREEN URINE NEGATIVE (NEGATIVE); *BENZODIAZEPINES SCREEN URINE NEGATIVE (NEGATIVE); *COCAINE SCREEN URINE NEGATIVE (NEGATIVE); CANNABINOID URINE SCREEN NEGATIVE (NEGATIVE); METHADONE URINE SCREEN NEGATIVE (NEGATIVE); OPIATES URINE SCREEN NEGATIVE (NEGATIVE); PHENCYCLIDINE URINE SCREEN NEGATIVE (NEGATIVE)
[2019-03-30] VITALS (10 sets, daily range): BP systolic 138–180; BP diastolic 73–140
[2019-03-30] MEDS: ENALAPRIL 2.5MG/2ML VIAL 2ML IV SCH ×3 (00:21→12:00)
[2019-03-30] MEDS: HYDRALAZINE 20MG/ML VIAL IV SCH ×3 (00:21→12:00)
[2019-03-30] MEDS: DEXTROSE 5% WATER 1,000 ML IV SCH ×2 (05:34→21:02)
[2019-03-30 06:36] LABS: HEMATOCRIT. 40.3 % (42.0-52.0); HEMOGLOBIN. 12.3 g/dL (14.0-18.0); MEAN CORPUSCULAR HEMOGLOBIN 25.4 pg (28.0-32.0); PLATELET 103 x1000/uL (130-400); RED BLOOD CELL COUNT 4.86 mill/uL (4.7-6.1); RED CELL DISTRIBUTION WIDTH 18.7 % (11.6-14.6)
[2019-03-30] MEDS: BLOOD SUGAR DIAGNOSTIC STRIP TEST SCH ×3 (06:58→21:10)
[2019-03-30] MEDS: INSULIN LISPRO 100 UNITS/ML SUBCUT SCH ×3 (06:59→21:00)
[2019-03-30] MEDS: CLOPIDOGREL 75MG TABLET PO SCH (11:43)
[2019-03-30] MEDS: LEVETIRACETAM 500MG PREMIX 100 ML IV SCH ×2 (11:44→22:27)
[2019-03-30] MEDS: ENOXAPARIN 30MG/0.3ML SYR SUBCUT SCH (11:44)
[2019-03-30] MEDS ORDERED: LABETALOL 5MG/ML SYR 20 MG/4 ML SYRINGE IV SCH (12:00)
[2019-03-30 13:18] LABS: CREATINE KINASE 709 IU/L (39-308)
[2019-03-30] MEDS ORDERED: LABETALOL 5MG/ML SYR 20 MG/4 ML SYRINGE IV PRN (15:45)
[2019-03-30] MEDS: AMLODIPINE 10MG TABLET PO SCH (16:23)
[2019-03-30] MEDS: HYDRALAZINE 20MG/ML VIAL IV PRN (18:40)
[2019-03-30] MEDS: CLONIDINE 0.2MG TABLET PO SCH (21:01)
[2019-03-31] VITALS (11 sets, daily range): BP systolic 121–146; BP diastolic 83–108
[2019-03-31] MEDS: CLONIDINE 0.2MG TABLET PO SCH ×3 (05:38→22:37)
[2019-03-31] MEDS: INSULIN LISPRO 100 UNITS/ML SUBCUT SCH ×4 (05:43→21:00)
[2019-03-31] MEDS: BLOOD SUGAR DIAGNOSTIC STRIP TEST SCH ×4 (05:43→22:20)
[2019-03-31 06:26] LABS: HEMATOCRIT. 38.8 % (42.0-52.0); HEMOGLOBIN. 11.7 g/dL (14.0-18.0); MEAN CORPUSCULAR HEMOGLOBIN 25.4 pg (28.0-32.0); MEAN PLATELET VOLUME 9.6 fl (7.4-10.4); PLATELET 83 x1000/uL (130-400); RED BLOOD CELL COUNT 4.61 mill/uL (4.7-6.1); RED CELL DISTRIBUTION WIDTH 18.3 % (11.6-14.6)
[2019-03-31 07:46] LABS: PLATELET ESTIMATE SLIGHTLY DECREASED
[2019-03-31] MEDS: LEVETIRACETAM 500MG PREMIX 100 ML IV SCH ×2 (09:09→22:37)
[2019-03-31] MEDS: AMLODIPINE 10MG TABLET PO SCH ×2 (09:10→22:36)
[2019-03-31] MEDS: CLOPIDOGREL 75MG TABLET PO SCH (09:10)
[2019-03-31] MEDS: ENOXAPARIN 30MG/0.3ML SYR SUBCUT SCH (09:10)
[2019-03-31] MEDS: DEXTROSE 5% WATER 1,000 ML IV SCH ×3 (10:07→22:53)
[2019-03-31] MEDS ORDERED: POTASSIUM CHLORIDE 20MEQ TABLET SR PO SCH (11:45)
[2019-03-31] MEDS: LOSARTAN POTASSIUM 25 MG TABLET PO SCH (12:49)
[2019-03-31] MEDS: POTASSIUM CHLORIDE 20MEQ/PACKET PO SCH (14:58)
[2019-03-31] MEDS ORDERED: CEFAZOLIN SODIUM 1000MG/VIAL IM ONE (16:45)
[2019-03-31 20:02] LABS: INR 1.2; PROTHROMBIN TIME 11.9 sec (9.6-11.0)
[2019-04-01] VITALS (14 sets, daily range): BP systolic 119–160; BP diastolic 80–113
[2019-04-01] MEDS: LOSARTAN POTASSIUM 25 MG TABLET PO SCH ×3 (00:01→18:55)
[2019-04-01 04:10] LABS: BARBITURATE SCREEN Negative ug/mL (Cutoff:0.1); BENZODIAZEPINE SCREEN Negative ng/mL (Cutoff:20); OPIATES SCREEN Negative ng/mL (Cutoff:5); PHENCYCLIDINE SCREEN Negative ng/mL (Cutoff:8)
[2019-04-01 04:52] LABS: PLATELET ESTIMATE DECREASED
[2019-04-01] MEDS: CLONIDINE 0.2MG TABLET PO SCH ×3 (05:45→18:56)
[2019-04-01] MEDS: BLOOD SUGAR DIAGNOSTIC STRIP TEST SCH ×4 (06:23→21:07)
[2019-04-01] MEDS: INSULIN LISPRO 100 UNITS/ML SUBCUT SCH ×4 (07:20→21:00)
[2019-04-01] MEDS: AMLODIPINE 10MG TABLET PO SCH ×2 (09:00→18:55)
[2019-04-01] MEDS: POTASSIUM CHLORIDE 20MEQ/PACKET PO SCH ×2 (09:00→18:56)
[2019-04-01] MEDS: DEXTROSE 5% WATER 1,000 ML IV SCH ×3 (09:00→20:58)
[2019-04-01] MEDS: LEVETIRACETAM 500MG PREMIX 100 ML IV SCH ×2 (09:06→21:07)
[2019-04-01] MEDS ORDERED: MIDAZOLAM HCL 5 MG/5 ML VIAL ONE (12:03)
[2019-04-01] MEDS ORDERED: FENTANYL CITRATE/PF 50MCG/ML 2ML VIAL ONE (12:04)
[2019-04-01] MEDS: CEFAZOLIN SODIUM 1000MG/VIAL IM NR ×2 (12:23→16:31)
[2019-04-01] MEDS ORDERED: CEFAZOLIN 1000MG PREMIX 50 ML IV ONE (14:14)
[2019-04-01] MEDS ORDERED: FENTANYL CITRATE/PF 50MCG/ML 2ML VIAL IV ONE (14:30)
[2019-04-01] MEDS ORDERED: METOCLOPRAMIDE HCL 10MG/2ML VIAL IV NR (15:00)
[2019-04-01] MEDS ORDERED: PANTOPRAZOLE SODIUM 40 MG/VIAL IV NR (15:00)
[2019-04-01] MEDS ORDERED: MIDAZOLAM HCL 2 MG/2 ML VIAL IV ONE (15:00)
[2019-04-01 15:15] LABS: HEMATOCRIT. 39.6 % (42.0-52.0); HEMOGLOBIN. 12.2 g/dL (14.0-18.0); MEAN CORPUSCULAR HEMOGLOBIN 25.7 pg (28.0-32.0); MEAN CORPUSCULAR VOLUME 83.3 fL (80.0-94.0); RED BLOOD CELL COUNT 4.75 mill/uL (4.7-6.1)
[2019-04-01 16:39] LABS: PLATELET ESTIMATE DECREAS
[2019-04-01 16:42] LABS: MEAN PLATELET VOLUME 10.1 fl (7.4-10.4); PLATELET 87 x1000/uL (130-400)
[2019-04-02] VITALS (11 sets, daily range): BP systolic 106–140; BP diastolic 50–100
[2019-04-02] MEDS: BLOOD SUGAR DIAGNOSTIC STRIP TEST SCH ×4 (05:59→21:38)
[2019-04-02] MEDS: CLONIDINE 0.2MG TABLET PO SCH ×3 (05:59→21:57)
[2019-04-02] MEDS: INSULIN LISPRO 100 UNITS/ML SUBCUT SCH ×4 (06:29→22:03)
[2019-04-02] MEDS: PANTOPRAZOLE SODIUM 40 MG/VIAL IV SCH (07:59)
[2019-04-02] MEDS: LEVETIRACETAM 500MG PREMIX 100 ML IV SCH ×2 (08:00→21:56)
[2019-04-02] MEDS: LOSARTAN POTASSIUM 25 MG TABLET PO SCH (08:03)
[2019-04-02] MEDS: AMLODIPINE 10MG TABLET PO SCH (08:08)
[2019-04-03] VITALS (12 sets, daily range): BP systolic 112–150; BP diastolic 70–99
[2019-04-03 06:27] LABS: HEMATOCRIT. 37.8 % (42.0-52.0); HEMOGLOBIN. 12.1 g/dL (14.0-18.0); MEAN CORPUSCULAR HEMOGLOBIN 26.2 pg (28.0-32.0); MEAN CORPUSCULAR VOLUME 81.7 fL (80.0-94.0); RED BLOOD CELL COUNT 4.63 mill/uL (4.7-6.1); RED CELL DISTRIBUTION WIDTH 18.2 % (11.6-14.6)
[2019-04-03 06:32] LABS: CHLORIDE 117 mEq/L (98-107)
[2019-04-03] MEDS: BLOOD SUGAR DIAGNOSTIC STRIP TEST SCH ×4 (06:50→21:00)
[2019-04-03] MEDS: PANTOPRAZOLE SODIUM 40 MG/VIAL IV SCH ×2 (08:09→23:10)
[2019-04-03] MEDS: LEVETIRACETAM 500MG PREMIX 100 ML IV SCH ×2 (08:09→23:10)
[2019-04-03] MEDS: CLONIDINE 0.2MG TABLET PO SCH ×3 (08:09→23:11)
[2019-04-03] MEDS: INSULIN LISPRO 100 UNITS/ML SUBCUT SCH ×4 (08:13→23:08)
[2019-04-03] MEDS: POTASSIUM CHLORIDE 20MEQ/PACKET PO SCH (08:14)
[2019-04-03 09:59] LABS: PLATELET 64 x1000/uL (130-400)
[2019-04-03 10:03] LABS: PLATELET ESTIMATE DECREASED
[2019-04-03 18:34] LABS: HEMATOCRIT 40.6 % (42.0-52.0); HEMOGLOBIN 12.4 g/dL (14.0-18.0)
[2019-04-04] VITALS (12 sets, daily range): BP systolic 126–164; BP diastolic 76–111
[2019-04-04 06:46] LABS: CHLORIDE 117 mEq/L (98-107)
[2019-04-04 06:57] LABS: HEMATOCRIT. 39.9 % (42.0-52.0); HEMOGLOBIN. 12.4 g/dL (14.0-18.0); MEAN CORPUSCULAR HEMOGLOBIN 25.6 pg (28.0-32.0); MEAN CORPUSCULAR VOLUME 82.2 fL (80.0-94.0); MEAN PLATELET VOLUME 9.8 fl (7.4-10.4); PLATELET 61 x1000/uL (130-400); RED BLOOD CELL COUNT 4.85 mill/uL (4.7-6.1); RED CELL DISTRIBUTION WIDTH 18.7 % (11.6-14.6)
[2019-04-04] MEDS: CLONIDINE 0.2MG TABLET PO SCH ×3 (07:02→20:43)
[2019-04-04] MEDS: BLOOD SUGAR DIAGNOSTIC STRIP TEST SCH ×4 (07:02→20:44)
[2019-04-04] MEDS: INSULIN LISPRO 100 UNITS/ML SUBCUT SCH ×4 (07:03→20:44)
[2019-04-04] MEDS: POTASSIUM CHLORIDE 20MEQ/PACKET PO SCH (08:55)
[2019-04-04] MEDS: PANTOPRAZOLE SODIUM 40 MG/VIAL IV SCH ×2 (08:56→20:43)
[2019-04-04] MEDS: LEVETIRACETAM 500MG PREMIX 100 ML IV SCH ×2 (08:56→20:43)
[2019-04-04] MEDS: HYDRALAZINE 20MG/ML VIAL IV PRN ×2 (08:57→21:15)
[2019-04-04] MEDS: SUCRALFATE 1 G/10 ML UDC PO SCH (17:10)
[2019-04-04 17:35] LABS: PLATELET ESTIMATE DECREASED
[2019-04-05] VITALS (13 sets, daily range): BP systolic 114–161; BP diastolic 68–108
[2019-04-05] MEDS: SUCRALFATE 1 G/10 ML UDC PO SCH ×4 (00:18→17:11)
[2019-04-05] MEDS: HYDRALAZINE 20MG/ML VIAL IV PRN (05:10)
[2019-04-05] MEDS: CLONIDINE 0.2MG TABLET PO SCH ×3 (05:11→21:58)
[2019-04-05] MEDS: INSULIN LISPRO 100 UNITS/ML SUBCUT SCH ×4 (05:48→21:00)
[2019-04-05] MEDS: BLOOD SUGAR DIAGNOSTIC STRIP TEST SCH ×4 (05:49→21:00)
[2019-04-05 06:26] LABS: CHLORIDE 117 mEq/L (98-107)
[2019-04-05 06:50] LABS: HEMATOCRIT. 39.7 % (42.0-52.0); HEMOGLOBIN. 12.5 g/dL (14.0-18.0); MEAN CORPUSCULAR HEMOGLOBIN 25.8 pg (28.0-32.0); MEAN CORPUSCULAR VOLUME 81.7 fL (80.0-94.0); PLATELET 73 x1000/uL (130-400); RED BLOOD CELL COUNT 4.86 mill/uL (4.7-6.1); RED CELL DISTRIBUTION WIDTH 18.4 % (11.6-14.6)
[2019-04-05 07:50] LABS: PLATELET ESTIMATE DECREASED
[2019-04-05] MEDS: PANTOPRAZOLE SODIUM 40 MG/VIAL IV SCH ×2 (09:14→21:57)
[2019-04-05] MEDS: POTASSIUM CHLORIDE 20MEQ/PACKET PO SCH (09:14)
[2019-04-05] MEDS: LEVETIRACETAM 500MG PREMIX 100 ML IV SCH ×2 (09:14→21:57)
[2019-04-05] MEDS: CARVEDILOL 3.125 MG TABLET GT SCH ×2 (11:18→21:58)
[2019-04-05] MEDS: FUROSEMIDE 40MG TABLET GT SCH (11:18)
[2019-04-05] MEDS: ASCORBIC ACID 500 MG TABLET PO SCH (13:33)
[2019-04-06] VITALS (18 sets, daily range): BP systolic 110–170; BP diastolic 68–122
[2019-04-06] MEDS: SUCRALFATE 1 G/10 ML UDC PO SCH ×2 (00:39→06:41)
[2019-04-06 06:35] LABS: HEMATOCRIT. 39.1 % (42.0-52.0); HEMOGLOBIN. 12.3 g/dL (14.0-18.0); MEAN CORPUSCULAR HEMOGLOBIN 25.7 pg (28.0-32.0); MEAN CORPUSCULAR VOLUME 81.5 fL (80.0-94.0); RED CELL DISTRIBUTION WIDTH 18.3 % (11.6-14.6)
[2019-04-06] MEDS: CLONIDINE 0.2MG TABLET PO SCH ×3 (06:42→21:10)
[2019-04-06 07:00] LABS: CHLORIDE 115 mEq/L (98-107)
[2019-04-06] MEDS: BLOOD SUGAR DIAGNOSTIC STRIP TEST SCH ×4 (07:02→21:33)
[2019-04-06] MEDS: INSULIN LISPRO 100 UNITS/ML SUBCUT SCH ×4 (09:18→21:33)
[2019-04-06] MEDS: ASCORBIC ACID 500 MG TABLET PO SCH (09:19)
[2019-04-06] MEDS: LEVETIRACETAM 500MG PREMIX 100 ML IV SCH ×2 (09:19→21:09)
[2019-04-06] MEDS: PANTOPRAZOLE SODIUM 40 MG/VIAL IV SCH ×2 (09:19→21:11)
[2019-04-06] MEDS: FUROSEMIDE 40MG TABLET GT SCH (09:19)
[2019-04-06] MEDS: CARVEDILOL 3.125 MG TABLET GT SCH ×2 (09:19→21:10)
[2019-04-06] MEDS: POTASSIUM CHLORIDE 20MEQ/PACKET PO SCH (09:20)
[2019-04-06] MEDS ORDERED: SODIUM POLYSTYRENE SULFONATE 15 G/60 ML BOT GT NR (10:00)
[2019-04-06 11:55] LABS: PLATELET 82 x1000/uL (130-400)
[2019-04-06 11:58] LABS: PLATELET ESTIMATE DECREASED
[2019-04-06] MEDS: HYDRALAZINE 20MG/ML VIAL IV PRN (22:42)
== END 2019-04-06 23:10 | DRG 64 ==
LOC: ER 17:36 → 7WST 22:16 → EDBEDREQTM 22:19 → EDBEDREQ 22:19 → CANRESERV 03-28 07:45 → ENRESERV 03-28 07:45 → 3WST 03-30 12:05
PROVIDERS: ADMIT Internal Medicine Nephrology; ATTEND Internal Medicine Nephrology
PROC: 4A10X4Z Monitoring of Central Nervous Electrical Activity, External Approach (ICD-10-PCS; 2019-03-29)
PROC: 0DH63UZ Insertion of Feeding Device into Stomach, Percutaneous Approach (ICD-10-PCS; principal; 2019-04-01)
PROC: 0DB78ZX Excision of Stomach, Pylorus, Via Natural or Artificial Opening Endoscopic, Diagnostic (ICD-10-PCS; 2019-04-01)
DX: I63.81 Other cerebral infarction due to occlusion or stenosis of small artery (principal); K29.71 Gastritis, unspecified, with bleeding; G92 Toxic encephalopathy; E43 Unspecified severe protein-calorie malnutrition; G82.50 Quadriplegia, unspecified; I13.0 Hypertensive heart and chronic kidney disease with heart failure and stage 1 through stage 4 chronic kidney disease, or unspecified chronic kidney disease; I50.22 Chronic systolic (congestive) heart failure; N17.9 Acute kidney failure, unspecified; K63.3 Ulcer of intestine; E87.0 Hyperosmolality and hypernatremia; M62.82 Rhabdomyolysis; R18.8 Other ascites; R47.01 Aphasia; E87.8 Other disorders of electrolyte and fluid balance, not elsewhere classified; I25.10 Atherosclerotic heart disease of native coronary artery without angina pectoris; I27.21 Secondary pulmonary arterial hypertension; E78.00 Pure hypercholesterolemia, unspecified; R47.02 Dysphasia; R13.10 Dysphagia, unspecified; D69.6 Thrombocytopenia, unspecified; K76.0 Fatty (change of) liver, not elsewhere classified; I25.5 Ischemic cardiomyopathy; L89.216 Pressure-induced deep tissue damage of right hip; R47.1 Dysarthria and anarthria; I08.1 Rheumatic disorders of both mitral and tricuspid valves; L81.6 Other disorders of diminished melanin formation; N18.3 Chronic kidney disease, stage 3 (moderate); E11.22 Type 2 diabetes mellitus with diabetic chronic kidney disease; E78.5 Hyperlipidemia, unspecified; G40.909 Epilepsy, unspecified, not intractable, without status epilepticus; K26.9 Duodenal ulcer, unspecified as acute or chronic, without hemorrhage or perforation; I25.2 Old myocardial infarction; Z86.73 Personal history of transient ischemic attack (TIA), and cerebral infarction without residual deficits; Z68.21 Body mass index [BMI] 21.0-21.9, adult; Z79.82 Long term (current) use of aspirin; Z79.899 Other long term (current) drug therapy; Z79.02 Long term (current) use of antithrombotics/antiplatelets
CPT/HCPCS: 36415; 70551; 71045; 76700; 80048; 80053; 80061; 80076; 80156; 80165; 80184; 80185; 80305; 80307; 80320; 82550; 82607; 82746; 82962; 83036; 83735; 84134; 84439; 84443; 84481; 84484; 85014; 85018; 85025; 86022; 86677; 86705; 86709; 86803; 87340; 88305; 88313; 92610; 93005; 93306; 93880; 97110; 97112; 97161; 97166; 97168; 97530; 97535; 99291; C9113; J0360; J0690; J1650; J1815; J1953; J2250; J2765; J3010; J3490; J7030; J7042; J7050; J7070; G0480